=== PATIENT | male | born 1945 | race Caucasian/White ===

== ENCOUNTER 2019-07-16 05:35 | Outpatient (CLI) | payer MEDICARE ==
[~2019-07-16] VITALS: Ht 177 cm; Wt 59.0 kg
[2019-07-16] MEDS ORDERED: FLUT15.845 NS (10:41)
[2019-07-16] MEDS ORDERED: LISI-556 PO (10:41)
[2019-07-16] MEDS ORDERED: TIOT18CA2 IH (10:41)
[2019-07-16] MEDS ORDERED: PANT40TA3 PO (10:41)
[2019-07-16] MEDS ORDERED: BUDE10.2 IH (10:41)
== END 2019-07-16 10:42 | disposition home or self-care (01) ==
LOC: PREOP 05:35
PROVIDERS: ATTEND Internal Medicine Critical Care Medicine
DX: Z01.818 Encounter for other preprocedural examination (principal)

== ENCOUNTER → 2019-07-17 | Outpatient (CLI) | payer MEDICARE ==
[~2019-07-17] MED LIST: BUDE10.2 IH; FLUT15.845 NS; HOLD METFORMIN - RECEIVED CONTRAST 20 ML VIAL IV SCH; IOHEXOL 350 MG/ML 100 ML (OMNIPAQUE 350) VIAL IV ONE; LISI-556 PO; NS 100 ML (IVPB) BAG IV ONE; PANT40TA3 PO; RT-ALBUTEROL SULF 2.5 MG/3 ML PRE-MIX VIAL INH ONE; RT-ALBUTEROL SULF 2.5 MG/3 ML PRE-MIX VIAL ONE; TIOT18CA2 IH
[2019-07-17 07:32] LABS: BUN/CREATININE RATIO 10; CREATININE SERUM 0.82 MG/DL (0.60-1.30); GFR ESTIMATED > 60
--- NOTE | 2019-07-17 09:05 | Diagnostic Imaging Report ---
EXAMINATION: CT Chest with intravenous contrast. TECHNIQUE: Multiple contiguous axial images were obtained through the chest after the uneventful administration of intravenous contrast. All CT scans use one or more of the following dose optimizing techniques: automated exposure control, MA and/or KvP adjustment based on a patient size and exam type, or iterative reconstruction. INDICATION: LUNG MASS,DYSPNEA COMPARISON: None available. FINDINGS: There is no edema or pneumonia. No pleural effusion. No pneumothorax. There is a 11 mm irregular shaped left upper lobe nodule. Lungs are severely emphysematous. There has been right upper lobe wedge resection. There is a 4 mm superior segment left lower lobe nodule (series 3, image 53). Heart size is normal. There are mild coronary artery calcifications. No pericardial effusion. Aorta is normal in caliber. There is no axillary or supraclavicular lymphadenopathy. There is no mediastinal lymphadenopathy. Calcified mediastinal lymph nodes are in keeping with prior granulomatous infection. Limited views of the upper abdomen show the gallbladder to be absent. There is mild thickening of adrenal glands without discrete nodule. 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 There are no suspicious osseus lesions. IMPRESSION: 1. Indeterminate but suspicious 11 mm left upper lobe nodule. According to the Fleischner Society guidelines: Recommend CT at 3 months or PET/CT now. Dictated by: Dictated on workstation # [id number]
== END ==
LOC: RT 06:55
PROVIDERS: ATTEND Nurse Practitioner Family
DX: J43.9 Emphysema, unspecified (principal); J30.9 Allergic rhinitis, unspecified; R91.8 Other nonspecific abnormal finding of lung field; Z72.0 Tobacco use; R09.02 Hypoxemia; R06.00 Dyspnea, unspecified; R06.89 Other abnormalities of breathing; R05 Cough
CPT/HCPCS: 36415; 71260; 82565; 84520; 94060; 94726; 94729

== ENCOUNTER 2019-08-13 17:30 | Inpatient (IN) | payer MEDICARE, OTHER ==
[~2019-08-13] VITALS: Ht 177 cm; Wt 55.0 kg
[~2019-08-13 17:30] MED LIST changes: -HOLD METFORMIN - RECEIVED CONTRAST 20 ML VIAL IV SCH; -IOHEXOL 350 MG/ML 100 ML (OMNIPAQUE 350) VIAL IV ONE; -NS 100 ML (IVPB) BAG IV ONE; -RT-ALBUTEROL SULF 2.5 MG/3 ML PRE-MIX VIAL INH ONE; -RT-ALBUTEROL SULF 2.5 MG/3 ML PRE-MIX VIAL ONE
[2019-08-13] MEDS ORDERED: methylPREDNISolone 125 MG (Solu-MEDROL) VIAL IV STA (17:40)
[2019-08-13] MEDS ORDERED: DEXAMETHASONE 4 MG/ML SDV (DECADRON) IH ONE (17:45)
[2019-08-13] MEDS ORDERED: CEFD300C3 PO (17:51)
[2019-08-13] MEDS ORDERED: PRD20T PO (17:51)
[2019-08-13 17:52] LABS: BASOPHILS % (AUTO) 0 % (0-10); EOSINOPHILS % (AUTO) 0 % (0-10); HEMATOCRIT 47 % (40-54); HEMOGLOBIN 15.3 G/DL (13.3-17.7); LYMPHOCYTES % (AUTO) 23 % (12-44); MEAN CORPUSCULAR HEMOGLOBIN 33 PG (25-34); MEAN CORPUSCULAR HGB CONC 33 G/DL (32-36); MEAN CORPUSCULAR VOLUME 99 FL (80-99); MEAN PLATELET VOLUME 10.5 FL (7.4-10.4); MONOCYTES # (AUTO) 1.2 X 10^3 (0.0-1.0); MONOCYTES % (AUTO) 13 % (0-12); NEUTROPHILS # (AUTO) 5.6 X 10^3 (1.8-7.8); NEUTROPHILS % (AUTO) 63 % (42-75); PLATELET COUNT 167 10^3/uL (130-400); RED CELL DISTRIBUTION WIDTH 13.4 % (10.0-14.5); WHITE BLOOD COUNT 8.8 10^3/uL (4.3-11.0)
[2019-08-13 18:10] LABS: ALANINE AMINOTRANSFERASE 21 U/L (0-55); ALBUMIN 3.9 GM/DL (3.2-4.5); ALKALINE PHOSPHATASE 78 U/L (40-136); BILIRUBIN,TOTAL 0.3 MG/DL (0.1-1.0); BUN/CREATININE RATIO 18; CALCIUM 9.3 MG/DL (8.5-10.1); CARBON DIOXIDE 31 MMOL/L (21-32); CHLORIDE 101 MMOL/L (98-107); CREATININE SERUM 0.79 MG/DL (0.60-1.30); GFR ESTIMATED > 60; GLUCOSE 119 MG/DL (70-105); MAGNESIUM 1.9 MG/DL (1.6-2.4); SODIUM 138 MMOL/L (135-145); TOTAL PROTEIN 6.9 GM/DL (6.4-8.2)
[2019-08-13] MEDS ORDERED: RT-ALBUTEROL SULF 2.5 MG/3 ML PRE-MIX VIAL INH ONE (18:15)
--- NOTE | 2019-08-13 18:24 | Diagnostic Imaging Report ---
INDICATION: Shortness of air. COMPARISON STUDY: Chest from July 22. FINDINGS: Frontal view of the chest demonstrates stable COPD changes. Surgical clips overlie the upper mediastinum. Heart size and vascularity are normal. There are no focal infiltrates. IMPRESSION: COPD. Dictated by: Dictated on workstation # [id number]
--- NOTE | 2019-08-13 18:29 | ED Respiratory ---
General Chief Complaint: Respiratory Problems Stated Complaint: SOA Nursing Triage Note: PT ARRIVED PER EMS PT CO OF SOA COUPLE DAYS WORSENING TODAY. PT HAS SL IN L WRIST #20 BY EMS History of Present Illness Date Seen by Provider: Aug 13, 2019 Time Seen by Provider: 17:30 Initial Comments 74-year-old male comes via EMS for shortness of air. He reports that is been getting worse over the last 2-3 days. He wears oxygen at home 1 L per nasal cannula but is not always compliant. He is supposed uses albuterol inhaler every 4-6 hours but has not been using it regularly. He is also on Symbicort. He sees Dr. Choi for chronic COPD. He denies any recent fevers. He is requiring O2 per nasal cannula at 4 L to maintain SaO2 greater than 90% Timing/Duration: yesterday Severity: moderate Prior Episodes/Possible Cause: occasional episodes Associated Symptoms: cough, shortness of breath, wheezing Allergies and Home Medications Allergies Coded Allergies: ipratropium (Verified Allergy, Unknown, 08/13/19) Home Medications Budesonide/Formoterol Fumarate 10.2 Gm Hfa.aer.ad, 2 PUFF IH BID, (Reported) Cefdinir 300 Mg Capsule, 300 MG PO BID, (Reported) Fluticasone Propionate 15.8 Ml [place].susp, 15.8 ML NS BIDPC, (Reported) Lisinopril 5 Mg Tablet, 5 MG PO DAILY, (Reported) Pantoprazole Sodium 40 Mg Tablet.dr, 40 MG PO DAILY, (Reported) Prednisone 20 Mg Tab, 40 MG PO DAILY, (Reported) Tiotropium [place] 1 Inh Aerp, 1 INH IH DAILY, (Reported) Patient Home Medication List Home Medication List Reviewed: Yes Review of Systems Review of Systems Constitutional: no symptoms reported, see HPI; No fever Respiratory: see HPI, cough, dyspnea on exertion, short of breath, wheezing Cardiovascular: no symptoms reported, see HPI; No chest pain Gastrointestinal: no symptoms reported, see HPI All Other Systems Reviewed Negative Unless Noted: Yes Past Covzcla-Tbawlu-Eiqynm Hx Past Med/Social Hx: Reviewed Nursing Past Med/Soc Hx Patient Social History Alcohol Use: Past History Recreational Drug Use: No Smoking Status: Former Smoker Type Used: Cigarettes Former Smoker, Quit: Jun 15, 2019 2nd Hand Smoke Exposure: No Recent Foreign Travel: No Contact w/Someone Who Travel: No Recent Infectious Disease Expo: No Recent Hopitalizations: Yes (JUN-2019 PNEUMONIA) Physical Abuse: No Sexual Abuse: No Immunizations Up To Date Tetanus Booster (TDap): Unknown Date of Pneumonia Vaccine: Mar 09, 2019 Date of Influenza Vaccine: Mar 09, 2019 Seasonal Allergies Seasonal Allergies: Yes Past Medical History Surgeries: Yes (FINGER AMPUTATION, R UPPER LOBECTOMY, CATARACTS) Gallbladder Respiratory: Yes (O2 PRN) Pneumonia, COPD Currently Using CPAP: No Currently Using BIPAP: No Cardiac: Yes Hypertension Neurological: No Sexually Transmitted Disease: No HIV/AIDS: No Genitourinary: No Gastrointestinal: Yes Hiatal Hernia Musculoskeletal: No (PSORIATIC ARTHRITIS) Endocrine: No HEENT: Yes (READING GLASSES) Loss of Vision: Denies Cancer: No Psychosocial: No Integumentary: Yes Psoriasis Blood Disorders: No Adverse Reaction/Blood Tranf: No (N/A) Physical Exam Vital Signs - First Documented 08/13/19 17:30 Temp 37.0 Pulse 118 Resp 24 B/P (MAP) 167/105 (125) Pulse Ox 91 O2 Delivery Nasal Cannula O2 Flow Rate 3.00 Capillary Refill : Less Than 3 Seconds Height: '" Weight: lbs. oz. kg; 18.00 BMI Method: General Appearance: WD/WN, moderate distress (secondary to dyspnea) Eyes: Bilateral Eye Normal Inspection, Bilateral Eye PERRL, Bilateral Eye EOMI HEENT: PERRL/EOMI, normal ENT inspection, TMs normal, pharynx normal Neck: non-tender, full range of motion, supple, normal inspection Respiratory: chest non-tender; No normal breath sounds, No no respiratory distress, No no accessory muscle use; decreased breath sounds, wheezing, other (noted retractions and respiratory distress) Cardiovascular: normal peripheral pulses, regular rate, rhythm Gastrointestinal: normal bowel sounds, non tender, soft Extremities: normal range of motion, non-tender, normal inspection, no pedal edema, no calf tenderness Neurologic/Psychiatric: no motor/sensory deficits, alert, normal mood/affect, oriented x 3 Skin: normal color, warm/dry Focused Exam Lactate Level 08/13/19 17:41: Lactic Acid Level 1.36 Lactic Acid Level Laboratory Tests Test 08/13/19 17:41 Lactic Acid Level 1.36 MMOL/L (0.50-2.00) Progress/Results/Core Measures Suspected Sepsis Recent Fever Within 48 Hours: Yes Infection Criteria Present: None New/Unexplained Altered Menta: No Sepsis Screen: No Definite Risk SIRS Temperature: Pulse: 118 Respiratory Rate: 24 Laboratory Tests 08/13/19 17:41: White Blood Count 8.8 Blood Pressure 167 /105 Mean: 125 08/13/19 17:41: Lactic Acid Level 1.36 Laboratory Tests 08/13/19 17:41: Creatinine 0.79, Platelet Count 167, Total Bilirubin 0.3 Results/Orders Lab Results Laboratory Tests Test 08/13/19 17:41 Range/Units White Blood Count 8.8 4.3-11.0 10^3/uL Red Blood Count 4.70 4.35-5.85 10^6/uL Hemoglobin 15.3 13.3-17.7 G/DL Hematocrit 47 40-54 % Mean Corpuscular Volume 99 80-99 FL Mean Corpuscular Hemoglobin 33 25-34 PG Mean Corpuscular Hemoglobin Concent 33 32-36 G/DL Red Cell Distribution Width 13.4 10.0-14.5 % Platelet Count 167 130-400 10^3/uL Mean Platelet Volume 10.5 H 7.4-10.4 FL Neutrophils (%) (Auto) 63 42-75 % Lymphocytes (%) (Auto) 23 12-44 % Monocytes (%) (Auto) 13 H 0-12 % Eosinophils (%) (Auto) 0 0-10 % Basophils (%) (Auto) 0 0-10 % Neutrophils # (Auto) 5.6 1.8-7.8 X 10^3 Lymphocytes # (Auto) 2.0 1.0-4.0 X 10^3 Monocytes # (Auto) 1.2 H 0.0-1.0 X 10^3 Eosinophils # (Auto) 0.0 0.0-0.3 10^3/uL Basophils # (Auto) 0.0 0.0-0.1 10^3/uL Sodium Level 138 135-145 MMOL/L Potassium Level 5.0 3.6-5.0 MMOL/L Chloride Level 101 98-107 MMOL/L Carbon Dioxide Level 31 21-32 MMOL/L Anion Gap 6 5-14 MMOL/L Blood Urea Nitrogen 14 7-18 MG/DL Creatinine 0.79 0.60-1.30 MG/DL Estimat Glomerular Filtration Rate > 60 BUN/Creatinine Ratio 18 Glucose Level 119 H 70-105 MG/DL Lactic Acid Level 1.36 0.50-2.00 MMOL/L Calcium Level 9.3 8.5-10.1 MG/DL Corrected Calcium 9.4 8.5-10.1 MG/DL Magnesium Level 1.9 1.6-2.4 MG/DL Total Bilirubin 0.3 0.1-1.0 MG/DL Aspartate Amino Transf (AST/SGOT) 24 5-34 U/L Alanine Aminotransferase (ALT/SGPT) 21 0-55 U/L Alkaline Phosphatase 78 40-136 U/L C-Reactive Protein High Sensitivity 2.70 H 0.00-0.50 MG/DL B-Type Natriuretic Peptide 18.4 <100.0 PG/ML Total Protein 6.9 6.4-8.2 GM/DL Albumin 3.9 3.2-4.5 GM/DL Procalcitonin 0.02 <0.10 NG/ML Micro Results Microbiology 08/13/19 Influenza Types A,B Antigen (BETZAIDA) - Final, Complete My Orders Orders - SELINA SANTILLAN Cbc With Automated Diff (08/13/19 17:40) Comprehensive Metabolic Panel (08/13/19 17:40) BNP (08/13/19 17:40) Hs C Reactive Protein (08/13/19 17:40) Magnesium (08/13/19 17:40) Ekg Tracing (08/13/19 17:40) O2 (08/13/19 17:40) Ed Iv/Invasive Line Start (08/13/19 17:40) Sputum Culture (08/13/19 17:40) Monitor-Rhythm Ecg Trace Only (08/13/19 17:40) Dexamethasone Injection (Decadron Inject (08/13/19 17:45) Methylprednisolone Sod Succ (Solu-Medrol (08/13/19 17:40) Chest 1 View, Ap/Pa Only (08/13/19 17:40) Blood Culture (08/13/19 17:42) Influenza A And B Antigens (08/13/19 17:42) Lactic Acid Analyzer (08/13/19 17:42) Medications Given in ED Vital Signs/I&O 08/13/19 08/13/19 17:30 17:30 Temp 37.0 Pulse 118 Resp 24 B/P (MAP) 167/105 (125) Pulse Ox 91 91 O2 Delivery Nasal Cannula Nasal Cannula O2 Flow Rate 3.00 3.00 Capillary Refill : Less Than 3 Seconds Blood Pressure Mean: 125 Progress Note : Time: 17:30 Progress Note Patient seen and evaluated, will continue oxygen per nasal cannula until respiratory therapy available to convert to Vapotherm and start one hour albuterol treatment. Will obtain labs and chest x-ray. Patient sitting on side of bed, leaning on table, feels easiest to breath, in this position. Solu- Medrol 125 mg per IV. 1814 Patient remains stable with less SOA, RT here. Chest x-ray and labs more compatible with COPD and not Pneumonia. SPoke to Dr. Green, agreed with plan for admission. 1854 Improving with vapotherm. Spoke to Dr. Regalado, will consult, agreed with plan of care. 1914 patient able to lie with head of bed elevated, no further retractions. Vapotherm continuing. Vital signs remained stable. Pro-calcitonin negative, will treat his COPD and not manage for infectious process with further antibiotics, Drs. Green and Steph agreed with this plan ECG Initial ECG Impression Date: Aug 13, 2019 Initial ECG Impression Time: 17:51 Initial ECG Rate: 114 Initial ECG Rhythm: S.Tach Initial ECG Intervals: Normal Initial ECG Intervals OH 176, QRSD 88, QT 316, QTC 436. [place] P 75, QRS 88, T 69. Initial ECG Impression: Normal Initial ECG Comparisson: Unchanged Diagnostic Imaging Diagonstic Imaging: Xray Plain Films/CT/US/NM/MRI: chest Comments NAME: SARAH DALAL MED REC#: [id number] PT STATUS: REG ER : 1945 PHYSICIAN: SELINA SANTILLAN ADMIT DATE: 08/13/19/ER Draft Date of Exam:08/13/19 CHEST 1 VIEW, AP/PA ONLY INDICATION: Shortness of air. COMPARISON STUDY: Chest from July 22. FINDINGS: Frontal view of the chest demonstrates stable COPD changes. Surgical clips overlie the upper mediastinum. Heart size and vascularity are normal. There are no focal infiltrates. IMPRESSION: COPD. Dictated on workstation # [id number] Dict: 08/13/191821 Trans: 08/13/191823 [facility] [id number] Interpreted by: CHELSIE PERSON MD Electronically signed by: Reviewed: Reviewed by Me Departure Impression Primary Impression: COPD exacerbation Additional Impression: Dyspnea Qualified Codes: R06.02 - Shortness of breath Disposition: ADMITTED INPATIENT Condition: Critical Admissions Decision to Admit Reason: Admit from ER (General) Decision to Admit/Date: Aug 13, 2019 Time/Decision to Admit Time: 18:15 Departure-Patient Inst. Decision time for Depature: 18:15 Referrals: JAKE VENEGAS DO (PCP/Family) Primary Care Physician SELINA SANTILLAN Aug 13, 2019 18:29
[2019-08-13] MEDS ORDERED: AZITHROMYCIN INJECTION 500 MG in NS (IVPB) 250 ML IV ONE (18:45)
[2019-08-13 20:39] VITALS: BP 139/93
[2019-08-13 20:44] VITALS: BP 139/93
[2019-08-13 20:45] VITALS: BP 110/79
[2019-08-13] MEDS ORDERED: 1/2 NS IV SOLUTION 1,000 ML IV SCH (20:45)
[2019-08-13] MEDS ORDERED: ACETAMINOPHEN 325 MG TABLET PO PRN (20:45)
[2019-08-13] MEDS ORDERED: ONDANSETRON 4 MG/2 ML (SDV) Z0FRAN IV PRN (20:45)
[2019-08-13 21:00] VITALS: BP 117/76
[2019-08-13 21:15] VITALS: BP 120/76
[2019-08-13 21:45] VITALS: BP_SYST 113; BP_SYST 121; BP_DIAS 73
--- NOTE | 2019-08-13 21:51 | NUR ---
Mat Score of 9 Albuterol Q4 and Q2 PRN Monitor and Reasses Q72HRs and PRN Addendum: 08/13/19 at 2151 by OLGA HANCOCK RT Amended: Links added.
[2019-08-13] MEDS ORDERED: RT-ALBUTEROL SULF 2.5 MG/3 ML PRE-MIX VIAL ONE (21:55)
[2019-08-13] MEDS: RT-ALBUTEROL SULF 2.5 MG/3 ML PRE-MIX VIAL INH SCH (22:10)
[2019-08-14] MEDS: RT-ALBUTEROL SULF 2.5 MG/3 ML PRE-MIX VIAL INH SCH ×6 (02:14→22:48)
[2019-08-14 03:51] LABS: BASOPHILS % (AUTO) 0 % (0-10); EOSINOPHILS % (AUTO) 0 % (0-10); HEMATOCRIT 45 % (40-54); HEMOGLOBIN 14.4 G/DL (13.3-17.7); LYMPHOCYTES # (AUTO) 0.3 X 10^3 (1.0-4.0); LYMPHOCYTES % (AUTO) 8 % (12-44); MEAN CORPUSCULAR HEMOGLOBIN 32 PG (25-34); MEAN CORPUSCULAR HGB CONC 32 G/DL (32-36); MEAN CORPUSCULAR VOLUME 99 FL (80-99); MEAN PLATELET VOLUME 10.6 FL (7.4-10.4); MONOCYTES # (AUTO) 0.1 X 10^3 (0.0-1.0); MONOCYTES % (AUTO) 2 % (0-12); NEUTROPHILS # (AUTO) 3.4 X 10^3 (1.8-7.8); NEUTROPHILS % (AUTO) 90 % (42-75); PLATELET COUNT 161 10^3/uL (130-400); RED CELL DISTRIBUTION WIDTH 13.4 % (10.0-14.5); WHITE BLOOD COUNT 3.8 10^3/uL (4.3-11.0)
[2019-08-14 04:00] VITALS: BP 147/78
[2019-08-14 04:07] LABS: BAND NEUTROPHILS 2 %; BASOPHILS % (MANUAL) 0 %; EOSINOPHILS % (MANUAL) 0 %; LYMPHOCYTES % (MANUAL) 9 %; MONOCYTES % (MANUAL) 3 %; NEUTROPHILS % (MANUAL) 85 %; REACTIVE LYMPHOCYTES 1 %
[2019-08-14 04:08] LABS: RBC MORPH NORMAL
[2019-08-14 04:13] LABS: ALANINE AMINOTRANSFERASE 20 U/L (0-55); ALBUMIN 3.7 GM/DL (3.2-4.5); ALKALINE PHOSPHATASE 77 U/L (40-136); BILIRUBIN,TOTAL 0.3 MG/DL (0.1-1.0); BUN/CREATININE RATIO 16; CARBON DIOXIDE 26 MMOL/L (21-32); CHLORIDE 99 MMOL/L (98-107); CREATININE SERUM 0.67 MG/DL (0.60-1.30); GFR ESTIMATED > 60; GLUCOSE 155 MG/DL (70-105); POTASSIUM 4.3 MMOL/L (3.6-5.0); SODIUM 137 MMOL/L (135-145); TOTAL PROTEIN 6.2 GM/DL (6.4-8.2)
[2019-08-14 05:00] VITALS: BP 183/101
--- NOTE | 2019-08-14 05:39 | Pulmonary Consultation ---
History of Present Illness History of Present Illness Date Seen by Provider: Aug 14, 2019 Time Seen by Provider: 05:37 Date of Admission Allergies and Home Medications Allergies Coded Allergies: ipratropium (Verified Allergy, Unknown, 08/13/19) Home Medications Budesonide/Formoterol Fumarate 10.2 Gm Hfa.aer.ad, 2 PUFF IH BID, (Reported) Cefdinir 300 Mg Capsule, 300 MG PO BID, (Reported) Fluticasone Propionate 15.8 Ml [place].susp, 15.8 ML NS BIDPC, (Reported) Lisinopril 5 Mg Tablet, 5 MG PO DAILY, (Reported) Pantoprazole Sodium 40 Mg Tablet.dr, 40 MG PO DAILY, (Reported) Prednisone 20 Mg Tab, 40 MG PO DAILY, (Reported) Tiotropium [place] 1 Inh Aerp, 1 INH IH DAILY, (Reported) Past Qouzaqs-Vtshjh-Aewfvr Hx Past Med/Social Hx: Reviewed Nursing Past Med/Soc Hx Patient Social History Alcohol Use: Past History Recreational Drug Use: No Smoking Status: Former Smoker Type Used: Cigarettes Former Smoker, Quit: Jun 15, 2019 2nd Hand Smoke Exposure: No Recent Foreign Travel: No Contact w/Someone Who Travel: No Recent Infectious Disease Expo: No Recent Hopitalizations: Yes (JUN-2019 PNEUMONIA) Physical Abuse: No Sexual Abuse: No Immunizations Up To Date Tetanus Booster (TDap): Unknown Date of Pneumonia Vaccine: Mar 09, 2019 Date of Influenza Vaccine: Mar 09, 2019 Seasonal Allergies Seasonal Allergies: Yes Past Medical History Surgeries: Yes (FINGER AMPUTATION, R UPPER LOBECTOMY, CATARACTS) Gallbladder Respiratory: Yes (O2 PRN) Pneumonia, COPD Currently Using CPAP: No Currently Using BIPAP: No Cardiac: Yes Hypertension Neurological: No Sexually Transmitted Disease: No HIV/AIDS: No Genitourinary: No Gastrointestinal: Yes Hiatal Hernia Musculoskeletal: No (PSORIATIC ARTHRITIS) Endocrine: No HEENT: Yes (READING GLASSES) Loss of Vision: Denies Cancer: No Psychosocial: No Integumentary: Yes Psoriasis Blood Disorders: No Adverse Reaction/Blood Tranf: No (N/A) Sepsis Event Evaluation Height, Weight, BMI Height: '" Weight: lbs. oz. kg; 16.72 BMI Method: Exam Exam Vital Signs Date Time Temp Pulse Resp B/P (MAP) Pulse Ox O2 Delivery O2 Flow Rate FiO2 08/14/19 04:00 70 20 147/78 (101) 98 Vapotherm 25.00 30.00 08/14/19 04:00 Vapotherm 22.00 25 08/14/19 02:50 Vapotherm 22.00 25.00 08/14/19 02:15 95 Vapotherm 25.00 25 08/14/19 01:00 90 08/14/19 00:00 Vapotherm 25.00 25 08/13/19 23:33 Vapotherm 25.00 25.00 08/13/19 23:31 37.2 08/13/19 22:10 97 Vapotherm 2.00 30 08/13/19 21:45 90 95 30 08/13/19 21:45 90 24 113/73 (86) 95 Vapotherm 25.00 30.00 08/13/19 21:15 92 13 120/76 (91) 95 Vapotherm 25.00 30.00 08/13/19 21:00 98 25 117/76 (90) 95 Vapotherm 25.00 30.00 08/13/19 20:55 102 08/13/19 20:45 105 25 110/79 (89) 95 Vapotherm 25.00 30.00 08/13/19 20:44 37.4 112 24 139/93 90 Vapotherm 25.00 30.00 08/13/19 20:39 37.4 112 24 139/93 (108) 90 Vapotherm 25.00 30.00 08/13/19 20:30 Vapotherm 25.00 30 08/13/19 18:26 95 Nasal Cannula 2.00 08/13/19 17:30 37.0 118 24 167/105 (125) 91 Nasal Cannula 3.00 08/13/19 17:30 91 Nasal Cannula 3.00 I & O 08/14/19 07:00 Intake Total 250 ml Output Total 0 ml Balance 250 ml Height & Weight Height: '" Weight: lbs. oz. kg; 16.72 BMI Method: Capillary Refill: Less Than 3 Seconds Gastrointestinal: normal bowel sounds, non tender, soft Results Lab Laboratory Tests 08/13/19 17:41 08/14/19 03:00 Assessment/Plan Assessment/Plan COPDAE -Solumedrol - change to 40 Q 6 -Oxygen -Check ABG -Change Vapotherm to NC -I highly doubt ipratropium allergy. Remove ipratropium from allergy list. Pt is on spiriva at home -Add advair and spiriva. Very sever COPD hx ASHLEY BALDWIN DO Aug 14, 2019 05:39
[2019-08-14] MEDS ORDERED: methylPREDNISolone 125 MG (Solu-MEDROL) VIAL IV SCH ×2 (06:00)
[2019-08-14] MEDS ORDERED: methylPREDNISolone 40 MG/ML (Solu-MEDROL) VIAL ONE (06:03)
[2019-08-14] MEDS: methylPREDNISolone 40 MG/ML (Solu-MEDROL) VIAL IV SCH ×4 (06:34→23:19)
[2019-08-14] MEDS: RT-ADVAIR HFA 115/21 MCG PER PUFF IH SCH ×2 (06:43→19:11)
--- NOTE | 2019-08-14 07:07 | Diagnostic Imaging Report ---
INDICATION: COPD exacerbation. COMPARISON: 08/13/2019. FINDINGS: The heart size is normal. There is air trapping compatible with COPD. There is no pleural effusion, pneumothorax or pneumonia. Mediastinum is unremarkable IMPRESSION: 1. COPD. 2. No other acute cardiopulmonary abnormality. Dictated by: Dictated on workstation # [id number]
[2019-08-14 08:00] VITALS: BP 97/82
[2019-08-14] MEDS ORDERED: TIOTROPIUM BROMIDE (SPIRIVA) 5'S INHALER IH SCH (08:00)
[2019-08-14] MEDS ORDERED: UMECLIDINIUM BROMIDE (INCRUSE ELLIPTA) 7'S IH SCH (08:00)
[2019-08-14 08:34] LABS: ABG BASE EXCESS 2.3 MMOL/L (-2.5-2.5); ABG OXYGEN SATURATION 97 % (94-100); ABG PCO2 47 MMHG (35-45); ABG PH 7.38 (7.37-7.43); ABG PO2 89 MMHG (79-93); ABG TCO2 28.7 MMOL/L (21.0-31.0)
[2019-08-14 08:35] LABS: ALLENS TEST YES-POS; INSPIRED O2 30; PATIENT TEMP 35.8; VENTILATOR NO
[2019-08-14] MEDS ORDERED: PATIENT MAY USE OWN MED,SINGLE MED PO SCH (09:00)
--- NOTE | 2019-08-14 09:10 | NUR ---
PT TRANSFERRED TO ROOM 419 VIA WC ACCOMPANIED BY THIS RN AND PT . PT PERSONAL BELONGINGS SENT TO NEW ROOM WITH PT INCLUDING PT HOME MEDS. BEDSIDE REPORT GIVEN TO RED BERNAL FOR CONTINUING CARE.
--- NOTE | 2019-08-14 09:15 | NUR ---
Bedside report received from Sultana Ann RN. I agree with previous RN's assessment. Patient voices no complaints and all needs met at this time. Call light within reach.
[2019-08-14] MEDS: TIOTROPIUM BROMIDE IH SCH (10:07)
[2019-08-14] MEDS ORDERED: FLUT9.9S NS (11:36)
[2019-08-14] MEDS ORDERED: IPRA3AMP31 NEB (11:36)
[2019-08-14] MEDS ORDERED: LACT1CAP62 PO (11:41)
[2019-08-14] MEDS ORDERED: MULT1TAB69 PO (11:41)
--- NOTE | 2019-08-14 11:50 | NUR ---
Pt is [employer]. Procurement Technician provided prayer and Communion.
[2019-08-14 12:00] VITALS: BP 155/79
--- NOTE | 2019-08-14 12:03 | NUR ---
RD ASSESSMENT PMHx: COPD; HTN; hiatal hernia PT INTERACTION: Pt was awake and pleasant during consult for MST score. Pt states current appetite is poor and has been for the "past 2days, if not longer." Note PO intake of 100% x1meal, per chart review. Pt states following a regular diet at home, and has no issues with chewing/swallowing food. Pt states no recent issues with nausea/vomiting/constipation, but has had some recent issues with diarrhea and that his last BM was 08/13. Note pt not currently on bowel regimen per chart review. Pt states he has lost 20-25# over the last year. Note recent 15# wt loss x1mon, per chart review. This is significant wt loss at 11% x1mon. Upon visual exam, pt appears frail with visible signs of muscle/fat wasting in the triceps and facial region. Note pt has BMI of 16.7, which is classified as Underweight. Given visual exam and wt hx, pt meets criteria for malnutrition per ASPEN guidelines. ABNORMAL NUTRITION-RELATED LAB VALUES LOW: Pro 6.2 HIGH: glu 155 Est. kcal needs: 2729-9635 kcal | 30-35 kcal/kg Est. 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 Continue with current supplementation order of Ensure Enlive (vary) with meals TID. Provides 350 kcal and 13 g Pro per serving. Encouraged pt to eat when able. Will continue to follow and reassess as pt needs, intake, and status change. MONITOR/EVALUATE: PO Intake; Plan of Care; Hydration Status; Weight Status; Lab Values Mateo Arrington, MS, RD, LD
[2019-08-14] MEDS ORDERED: SODI4VIA26 NEB (12:05)
--- NOTE | 2019-08-14 12:12 | NUR ---
SPOKE WITH THE PT AND WENT THRU THE EXT MED HISTORY TO COMPLETE THE MED REC PT WAS ABLE TO TELL ME HIS MEDS AND HOW/WHEN HE TAKES THEM (ALL INFORMATION MATCHED THE EXT MED HISTORY) PT DID SAY HE HAD SOME LEFT OVER PREDNISONE 10MG AND OVER THE LAST 24 HOURS HAD BEEN TAKING SOME TO KEEP FROM HAVING TO COME IN. HE TOOK 4 TABS TWICE DAILY YESTERDAY. OTC MEDS: [employer] PRO[employer]OTIC
--- NOTE | 2019-08-14 14:41 | History & Physical-Hospitalist ---
History of Present Illness HPI/Chief Complaint Pt is a 74yoCM with a PMH of COPD and HTN who presented to the ER due to shortness of breath. He states that he suffered a "respiratory arrest" after going to the bathroom. He states he wears continuous oxygen at home and took it off to go to the bathroom but by the time he got back he was in "respiratory arrest." He asked his to call 911 at that time and placed his oxygen back on at 5lpm. He states his symptoms were much improved by the time EMS got there. He states he was seen by his PCP a few days ago an started on steroids and antibiotics without any improvement. He has been having increased shortness of breath over the past few days and thinks his Spiriva is causing bronchospasm. I offered to discontinue this order but he declined because he wants to follow Dr Choi's orders. Date Seen 08/14/19 Time Seen by a Provider: 14:34 Attending Physician Erickson Green MD PCP Zhang Duncan DO Referring Physician Date of Admission Aug 14, 2019 at 08:28 Home Medications & Allergies Home Medications Reviewed patient Home Medication Reconciliation performed by pharmacy medication reconciliations police service technician and/or nursing. Patients Allergies have been reviewed. Allergies Allergies Coded Allergies No Known Drug Allergies (Unverified08/14/19) Past Ugpvyky-Qjwmat-Xrmset Hx Past Med/Social Hx: Reviewed Nursing Past Med/Soc Hx Patient Social History Alcohol Use: Past History Recreational Drug Use: No Smoking Status: Former Smoker Former Smoker, Quit: Jun 15, 2019 Type Used: Cigarettes 2nd Hand Smoke Exposure: No Recent Foreign Travel: No Contact w/other who traveled: No Recent Hopitalizations: Yes (JUN-2019 PNEUMONIA) Recent Infectious Disease Expo: No Immunizations Up To Date Tetanus Booster (TDap): Unknown Date of Pneumonia Vaccine: Mar 09, 2019 Date of Influenza Vaccine: Mar 09, 2019 Seasonal Allergies Seasonal Allergies: Yes Past Medical History Surgeries: Gallbladder Currently Using CPAP: No Currently Using BIPAP: No Cardiac: Hypertension Sexually Transmitted Disease: No HIV/AIDS: No Gastrointestinal: Hiatal Hernia Loss of Vision: Denies Skin/Integumentary: Psoriasis History of Blood Disorders: No Adverse Reaction to Blood Chandra: No (N/A) Family History Reviewed Nursing Family Hx Review of Systems Constitutional: No chills, No fever Respiratory: cough, dyspnea on exertion, short of breath, wheezing Gastrointestinal: no symptoms reported Genitourinary: no symptoms reported Musculoskeletal: no symptoms reported Skin: no symptoms reported Psychiatric/Neurological: No Symptoms Reported Physical Exam Physical Exam Vital Signs Vital Signs - First Documented 08/13/19 08/13/19 17:30 20:30 Temp 37.0 Pulse 118 Resp 24 B/P (MAP) 167/105 (125) Pulse Ox 91 O2 Delivery Nasal Cannula O2 Flow Rate 3.00 FiO2 30 Capillary Refill : Less Than 3 Seconds Height, Weight, BMI Height: '" Weight: lbs. oz. kg; 16.72 BMI Method: General Appearance: No Apparent Distress, Chronically ill, Thin HEENT: Moist Mucous Membranes; No Scleral Icterus (L), No Scleral Icterus (R) Neck: Normal Inspection, Supple Respiratory: No Accessory Muscle Use, Other (decreased air movement with expiratory wheezing) Cardiovascular: Regular Rate, Rhythm, No Murmur Gastrointestinal: Normal Bowel Sounds, Non Tender, Soft Extremity: No Calf Tenderness, No Pedal Edema Neurologic/Psychiatric: Alert, Oriented x3, Normal Mood/Affect Results Results/Procedures Labs Laboratory Tests 08/13/19 17:41 08/14/19 03:00 Patient resulted labs reviewed. Imaging: Reviewed Imaging Report Assessment/Plan Admission Diagnosis Acute COPD Exacerbation Admission Status: Inpatient Order (span 2 midnights) Reason for Inpatient Admission: failed outpatient management Assessment and Plan Acute on Chronic Respiratory Failure Acute COPD Exacerbation Continue with supplemental oxygen Steroids Advair, Spiriva MAT Protocol Pulm consulted, appreciate recs HTN Resume Lisinopril Gastritis Resume home PPI Clinical Quality Measures DVT/VTE Risk/Contraindication: Risk Factor Score Per Nursin RFS Level Per Nursing on Admit: 4+=Very High ERICKSON GREEN MD Aug 14, 2019 14:41
[2019-08-14] MEDS ORDERED: ONDANSETRON 4 MG/2 ML (SDV) Z0FRAN IV PRN (15:30)
[2019-08-14] MEDS ORDERED: ACETAMINOPHEN 325 MG TABLET PO PRN (15:30)
[2019-08-14] MEDS ORDERED: MELATONIN 3 MG TABLET PO PRN (15:30)
[2019-08-14] MEDS ORDERED: ANTACID SUSP 30 ML UDC (MYLANTA) PO PRN (15:30)
[2019-08-14] MEDS ORDERED: BENZONATATE 100 MG (TESSALON) CAPSULE PO PRN (15:30)
[2019-08-14] MEDS ORDERED: MILK OF MAGNESIA 400 MG/5 ML 30 ML UDC PO PRN (15:30)
[2019-08-14 16:00] VITALS: BP 161/80
[2019-08-14 19:53] VITALS: BP 137/75
[2019-08-15 00:03] VITALS: BP 118/67
[2019-08-15] MEDS: RT-ALBUTEROL SULF 2.5 MG/3 ML PRE-MIX VIAL INH SCH ×4 (02:19→21:55)
[2019-08-15 04:27] VITALS: BP 118/74
[2019-08-15 05:37] LABS: BASOPHILS % (AUTO) 0 % (0-10); EOSINOPHILS % (AUTO) 0 % (0-10); HEMATOCRIT 46 % (40-54); HEMOGLOBIN 14.9 G/DL (13.3-17.7); LYMPHOCYTES # (AUTO) 0.5 X 10^3 (1.0-4.0); LYMPHOCYTES % (AUTO) 6 % (12-44); MEAN CORPUSCULAR HEMOGLOBIN 32 PG (25-34); MEAN CORPUSCULAR HGB CONC 32 G/DL (32-36); MEAN CORPUSCULAR VOLUME 99 FL (80-99); MEAN PLATELET VOLUME 10.7 FL (7.4-10.4); MONOCYTES # (AUTO) 0.4 X 10^3 (0.0-1.0); MONOCYTES % (AUTO) 5 % (0-12); NEUTROPHILS # (AUTO) 8.3 X 10^3 (1.8-7.8); NEUTROPHILS % (AUTO) 90 % (42-75); PLATELET COUNT 181 10^3/uL (130-400); RED CELL DISTRIBUTION WIDTH 13.3 % (10.0-14.5); WHITE BLOOD COUNT 9.3 10^3/uL (4.3-11.0)
[2019-08-15 05:53] LABS: BUN/CREATININE RATIO 19; CALCIUM 9.6 MG/DL (8.5-10.1); CARBON DIOXIDE 28 MMOL/L (21-32); CHLORIDE 100 MMOL/L (98-107); CREATININE SERUM 0.75 MG/DL (0.60-1.30); GFR ESTIMATED > 60; GLUCOSE 227 MG/DL (70-105); POTASSIUM 4.2 MMOL/L (3.6-5.0); SODIUM 139 MMOL/L (135-145)
[2019-08-15] MEDS: methylPREDNISolone 40 MG/ML (Solu-MEDROL) VIAL IV SCH (06:05)
[2019-08-15 08:00] VITALS: BP 122/78
[2019-08-15] MEDS: predniSONE 10 MG TAB PO SCH (08:35)
--- NOTE | 2019-08-15 08:38 | NUR ---
This RN went to give patient morning medications. patient informed this RN that he already took his own protonix and lisonopril. home medications sent to in house pharmacy to be labeled
[2019-08-15] MEDS ORDERED: PATIENT MAY USE OWN MEDS, ALL MC SCH (08:45)
[2019-08-15] MEDS ORDERED: lisINopril 5 MG (PRINIVIL) TABLET PO SCH (09:00)
[2019-08-15] MEDS ORDERED: PANTOPRAZOLE 40 MG (PROTONIX) TAB PO SCH (09:00)
[2019-08-15] MEDS: lisINopril 5 MG (PRINIVIL) TABLET PO SCH (10:57)
[2019-08-15] MEDS: PANTOPRAZOLE 40 MG (PROTONIX) TAB PO SCH (10:58)
[2019-08-15 12:00] VITALS: BP 127/68
--- NOTE | 2019-08-15 12:04 | Progress Note - Hospitalist ---
Subjective HPI/CC On Admission Date Seen by Provider: Aug 15, 2019 Time Seen by Provider: 11:59 Pt is a 74yoCM with a PMH of COPD and HTN who presented to the ER due to shortness of breath. He states that he suffered a "respiratory arrest" after going to the bathroom. He states he wears continuous oxygen at home and took it off to go to the bathroom but by the time he got back he was in "respiratory arrest." He asked his to call 911 at that time and placed his oxygen back on at 5lpm. He states his symptoms were much improved by the time EMS got there. He states he was seen by his PCP a few days ago an started on steroids and antibiotics without any improvement. He has been having increased shortness of breath over the past few days and thinks his Spiriva is causing bronchospasm. I offered to discontinue this order but he declined because he wants to follow Dr Choi's orders. Subjective/Events-last exam Pt reports feeling much better. Breathing improved. No other complaints. Focused Exam Lactate Level 08/13/19 17:41: Lactic Acid Level 1.36 Objective Exam Vital Signs Vital Signs Date Time Temp Pulse Resp B/P (MAP) Pulse Ox O2 Delivery O2 Flow Rate FiO2 08/15/19 08:00 37.1 85 18 122/78 (93) 93 Nasal Cannula 1.00 08/14/19 04:00 25 Capillary Refill : Less Than 3 Seconds General Appearance: No Apparent Distress, Anxious, Chronically ill, Thin Respiratory: No Accessory Muscle Use, No Respiratory Distress, Decreased Breath Sounds; No Wheezing Cardiovascular: Regular Rate, Rhythm, No Murmur Neurologic/Psychiatric: Alert, Oriented x3 Results/Procedures Lab Laboratory Tests 08/15/19 05:00 Patient resulted labs reviewed. Imaging: Reviewed Imaging Report Assessment/Plan Assessment and Plan Assess & Plan/Chief Complaint Acute on Chronic Respiratory Failure Acute COPD Exacerbation Continue with supplemental oxygen with goals for sats >90 Patient has been adjusting his own oxygen levels and I advised that he should not being doing this unless his nurse is aware but he is insistent he needs to preoxygenate. Again reinforced that this is not allowed Steroids, transitioned to oral steroids today MAT Protocol Pulm consulted, appreciate recs HTN Continue Lisinopril Gastritis Continue home PPI Clinical Quality Measures DVT/VTE Risk/Contraindication: Risk Factor Score Per Nursin RFS Level Per Nursing on Admit: 4+=Very High ERICKSON JARVIS MD Aug 15, 2019 12:04
--- NOTE | 2019-08-15 14:00 | NUR ---
Report from Patricia BERNAL, will assume care of patient at this time.
[2019-08-15 16:00] VITALS: BP 130/73
--- OUTSIDE RECORDS SUMMARY | 2019-08-15 17:15 | XMS REPORT | Continuity of Care Document ---
Author Organization Unknown Address Unknown Phone Unavailable Allergies Active Description Code Type Severity Reaction Onset Reported/Identified Relationship to Patient Clinical Status Yes NO KNOWN DRUG ALLERGIES NO KNOWN DRUG ALLERG UNKNOWN Yes NO KNOWN DRUG ALLERGIES UNKNOWN NO KNOWN DRUG ALLERG Yes NO KNOWN DRUG ALLERGIES UNKNOWN UNKNOWN Yes ipratropium [id number] Drug Aller gy Unknown N/A 08/13/2019 Yes No Known Drug Allergies [id number] Drug Allergy Unknown N/A 08/14/2019 Medications Medication Packaging Start Date St op Date Route Dosage Sig IPRATROPIUM/ALBUTEROL INH SO LN INH 0 (DUO-NEB INH SOLN) MLS 05/31/2016 05/31/2016 ONCE&0907 METHYLPREDNISOLONE VIAL INJ 125 MG/2CC (SOLU-MEDROL VIAL) MG 05/31/2016 05/31/2016 ONCE&0916 ONDANSETRON VIAL INJ 4 MG/2CC (ZOFRAN 2CC VIAL) MG 05/31/2016 05/31/2016 ONCE&0928 ALBUTEROL SVN 2.5MG/3CC LIQ 2.5 MG (PROVENTIL ANKIT 2.5MG/3CC) MG 05/31/2016 05/31/2016 ONCE&0930 NORMAL SALINE 500CC IV BAG I NJ 0.9 % (NS 500CC IV BAG) ml 05/31/2016 05/31/2016 ONCE&1007 ALBUTEROL SVN 2.5MG/3CC LIQ 2.5 MG (PROVENTIL ANKIT 2.5MG/3CC) MG 05/31/2016 06/10/2016 QID&0600,1100,1600,2100 IPRATROPIUM/ALBUTEROL INH SO LN INH 0 (DUO-NEB INH SOLN) MLS 05/31/2016 06/07/2016 QID&0600,1100,1600,2100 CEFTRIAXONE PREMIX IV BAG IV 1 GM/50CC (ROCEPHIN PREMIX IV BAG) GM 05/31/2016 06/06/2016 Daily&1200 METHYLPREDNISOLONE VIAL INJ 125 MG/2CC (SOLU-MEDROL VIAL) MG 05/31/2016 06/05/2016 Q8H&0600,1400,2200 IPRATROPIUM/ALBUTEROL INH SO LN INH 0 (DUO-NEB INH SOLN) MLS 05/31/2016 06/07/2016 QID&0600,1100,1600,2100 RANITIDINE TAB 150 MG (ZANTAC) Dose(s) 05/31/2016 06/07/2016 BID&0800,2000 IPRATROPIUM/ALBUTEROL INH SO LN INH 0 (DUO-NEB INH SOLN) MLS 05/31/2016 06/07/2016 PRN Q2H LISINOPRIL TAB 5 MG (ZESTRIL) Dose(s) 06/01/2016 06/07/2016 Daily&0900 AZITHROMYCIN TAB 250 MG (ZITHROMAX) Dose(s) 06/01/2016 06/04/2016 Daily&0900 TIOTROPIUM CAP 18 MCG (SPIRIVA) Dose(s) 06/01/2016 06/07/2016 Daily&0900 CEFTRIAXONE INJ 1 GM (ROCEPHIN) GM 06/01/2016 06/07/2016 Daily&0900 CEFTRIAXONE PREMIX IV BAG IV 1 GM/50CC (ROCEPHIN PREMIX IV BAG) GM 06/01/2016 06/07/2016 Daily&0900 METHYLPREDNISOLONE VIAL INJ 125 MG/2CC (SOLU-MEDROL VIAL) MG 06/01/2016 06/06/2016 Q6H&0600,1200,1800,2359 BUDESONIDE INHALATION SUSP A MP 0.5 MG/2CC (PULMICORT) MG 06/01/2016 06/08/2016 BID&0800,2000 METHYLPREDNISOLONE VIAL INJ 125 MG/2CC (SOLU-MEDROL VIAL) MG 06/02/2016 06/07/2016 Q6H&0000,0600,1200,1800 METHYLPREDNISOLONE VIAL INJ 40 MG/CC (SOLU-MEDROL VIAL) MG 06/03/2016 06/08/2016 Q8H&0600,1400,2200 CEFDINIR CAP 300 MG (OMNICEF) MG 06/04/2016 06/14/2016 BID&0800,2000 PREDNISONE TAB 20 MG (DELTASONE) MG 06/04/2016 06/11/2016 BID&0800,2000 ALBUTEROL SVN 2.5MG/3CC LIQ 2.5 MG (PROVENTIL ANKIT 2.5MG/3CC) MG 10/06/2018 10/16/2018 QID&0600,1100,1600,2100 ALBUTEROL SVN 2.5MG/3CC LIQ 2.5 MG (PROVENTIL ANKIT 2.5MG/3CC) MG 10/06/2018 10/06/2018 ONCE&2308 METHYLPREDNISOLONE VIAL INJ 125 MG/2CC (SOLU-MEDROL VIAL) MG 10/06/2018 10/06/2018 ONCE&2308 IPRATROPIUM/ALBUTEROL INH SO LN (DUO-NEB INH SOLN) MLS 10/06/2018 10/06/2018 ONCE&2315 ALBUTEROL SVN 2.5MG/3CC LIQ 2.5 MG (PROVENTIL ANKIT 2.5MG/3CC) MG 10/06/2018 10/06/2018 ONCE&2332 CEFTRIAXONE PREMIX IV BAG IV 1 GM/50CC (ROCEPHIN PREMIX IV BAG) GM 10/07/2018 10/13/2018 Daily&0030 ALBUTEROL SVN 2.5MG/3CC LIQ 2.5 MG (PROVENTIL ANKIT 2.5MG/3CC) MG 10/07/2018 10/17/2018 PRN Q4H LACTOBACILLUS BULGARIS TAB (LACTINEX BULGA RIS) tab 10/07/2018 10/16/2018 QID&0800,1200,1700,2200 TIOTROPIUM CAP 18 MCG (SPIRIVA) Dose(s) 10/07/2018 10/26/2018 BID&0800,2000 BUDESONIDE/FORMOTEROL INH 16 0 /4.5MCG (SYMBICORT) Dose(s) 10/07/2018 11/05/2018 BID&0800,2000 METHYLPREDNISOLONE VIAL INJ 125 MG/2CC (SOLU-MEDROL VIAL) MG 10/07/2018 10/12/2018 Q8H&0000,0800,1600 FLUTICASONE NASAL INHALER MD I 50 MCG (FLONASE NOSE SPRAY) Dose(s) 10/07/2018 11/05/2018 Daily&0900 LISINOPRIL TAB 5 MG (ZESTRIL) Dose(s) 10/07/2018 11/05/2018 Daily&0900 NICOTINE PATCH PAT 21 MG (NICODERM) MG 10/07/2018 10/13/2018 Daily&0900 PANTOPRAZOLE VIAL INJ 40 MG (PROTONIX IV) MG 10/07/2018 10/16/2018 Daily&0900 TIOTROPIUM CAP 18 MCG (SPIRIVA) MCG 10/08/2018 10/14/2018 Daily&0900 METHYLPREDNISOLONE VIAL INJ 125 MG/2CC (SOLU-MEDROL VIAL) MG 10/08/2018 10/13/2018 Q8H&0400,1200,2000 CEFDINIR CAP 300 MG (OMNICEF) MG 10/09/2018 10/16/2018 BID&0800,2000 PREDNISONE TAB 20 MG (DELTASONE) MG 10/09/2018 10/16/2018 BID&0800,1999 LACTATED RINGERS 1000CC IV BAG INJ ml 06/12/2019 06/19/2019 CONTINUOUSEVERY 0 Hour IPRATROPIUM/ALBUTEROL INH SO LN (DUO-NEB INH SOLN) MLS 06/25/2019 06/25/2019 ONCE&1405 METHYLPREDNISOLONE VIAL INJ 125 MG/2CC (SOLU-MEDROL VIAL) MG 06/25/2019 06/25/2019 ONCE&1415 ACETAMINOPHEN ORAL TABLET 325mg(Tylenol) MG 06/25/2019 07/25/2019 PRN EVERY 6 Hour LACTOBACILLUS BULGARIS TAB (LACTINEX BULGA RIS) 06/25/2019 07/05/2019 QID&0800,1200,1700,2200 IPRATROPIUM/ALBUTEROL INH SO LN (DUO-NEB INH SOLN) MLS 06/25/2019 07/05/2019 QID&0800,1200,1700,2200 ALPRAZOLAM TAB 0.25 MG (XANAX) MG 06/25/2019 07/05/2019 PRN Q6H CLONIDINE TAB 0.1 MG (CATAPRES) MG 06/25/2019 07/02/2019 PRN Q6H ACETAMINOPHEN SUPPOS SUP 650 MG (TYLENOL) MG 06/25/2019 07/02/2019 PRN Q4H ONDANSETRON VIAL INJ 4 MG/2CC (ZOFRAN 2CC VIAL) MG 06/25/2019 07/02/2019 PRN Q6H CALCIUM CARBONATE TAB 500 MG (TUMS) MG 06/25/2019 07/02/2019 PRN Q6H DIPHENHYDRAMINE CAP 25 MG (BENADRYL) MG 06/25/2019 07/02/2019 PRN Q6H ALBUTEROL SVN 2.5MG/3CC LIQ 2.5 MG (PROVENTIL ANKIT 2.5MG/3CC) MG 06/25/2019 07/05/2019 PRN Q4H HYDROCODONE/APAP 5MG/325MG T AB 5 MG/325MG (SUSAN-TAB 5/325) TAB 06/25/2019 07/05/2019 PRN Q6H CEFTRIAXONE PREMIX IV BAG IV 1 GM/50CC (ROCEPHIN PREMIX IV BAG) GM 06/25/2019 07/01/2019 Daily&1800 ALUM/MAG/SIMETH 30CC LIQ (MYLANTA PLUS) cc 06/25/2019 07/05/2019 PRN Q4H GUAIFENESIN - DM LIQ (ROBITUSSIN DM) MLS 06/25/2019 07/02/2019 PRN Q4H Docusate sodium 100mg oral capsule (COLACE ) MG 06/25/2019 07/25/2019 PRN BID FAMOTIDINE VIAL INJ 20 MG/2CC (PEPCID VIAL ) MG 06/25/2019 07/02/2019 BID&0800,2000 RANITIDINE TAB 150 MG (ZANTAC) MG 06/25/2019 07/25/2019 BID&0800,2000 BUDESONIDE INHALATION SUSP A MP 0.5 MG/2CC (PULMICORT) MG 06/25/2019 07/02/2019 BID&0800,2000 LACTULOSE SYRUP LIQ 20 GM/30 CC (CHRONULAC SYRUP) GM 06/25/2019 07/25/2019 BID&0800,2000 METHYLPREDNISOLONE VIAL INJ 125 MG/2CC (SOLU-MEDROL VIAL) MG 06/25/2019 06/30/2019 Q6H&0200,0800,1400,2000 NORMAL SALINE 1000CC IV BAG INJ 0.9 % (NS 1000CC IV BAG) ml 06/25/2019 07/10/2019 CONTINUOUSEVERY 0 Hour MONTELUKAST TAB 10 MG (SINGULAIR) MG 06/25/2019 07/24/2019 Daily&2100 MELATONIN TAB 3 MG (MELATONIN) MG 06/25/2019 07/24/2019 PRN QHS AZITHROMYCIN TAB 500 MG (ZITHROMAX) MG 06/25/2019 06/29/2019 Daily&1700 ENOXAPARIN SYRINGE INJ 40 MG (LOVENOX SYRI NGE) MG 06/25/2019 07/04/2019 Daily&2200 BISACODYL TAB 5 MG (DULCOLAX) MG 06/26/2019 07/02/2019 PRN Daily PANTOPRAZOLE TAB 40 MG (PROTONIX) MG 06/26/2019 07/02/2019 Daily&0900 POLYETHYLENE GLYCOL POWDER U D PWD (MIRALAX 17GM UNIT DOSE PAKS) gm 06/26/2019 07/02/2019 Daily&0900 BISACODYL SUPPOS 10 MG (DULCOLAX SUPPOS) MG 06/26/2019 07/02/2019 PRN Daily MILK OF MAGNESIA LIQ ml 06/26/2019 07/25/2019 PRN Daily ENOXAPARIN SYRINGE INJ 40 MG (LOVENOX SYRI NGE) MG 06/26/2019 07/05/2019 Daily&2000 AZITHROMYCIN TAB 500 MG (ZITHROMAX) MG 06/26/2019 06/30/2019 Daily&2000 ALBUTEROL SVN 2.5MG/3CC LIQ 2.5 MG (PROVENTIL ANKIT 2.5MG/3CC) MG 06/28/2019 07/08/2019 QID&0600,1100,1600,2100 METHYLPREDNISOLONE VIAL INJ 125 MG/2CC (SOLU-MEDROL VIAL) MG 06/28/2019 07/03/2019 BID&0800,2000 LISINOPRIL TAB 5 MG (ZESTRIL) MG 06/29/2019 07/02/2019 Daily&0900 Problems Date Dx Coded Attending Type Code Diagnosis Diagnosed By 05/31/2016 Smith Owusu J44.1 CHRONIC OBSTRUCTIVE PULMONARY DISEASE W (ACUTE) EXACERBATION 05/31/2016 Zhang Duncan 491.21 OBSTRUCTIVE CHRONIC BRONCHITIS WITH (ACUTE) EXACERBATION 05/31/2016 Zhang Duncan J44.1 CHRONIC OBSTRUCTIVE PULMONARY DISEASE WITH (ACUTE) EXACERBATION 05/31/2016 Zhang Duncan 491.21 OBSTRUCTIVE CHRONIC BRONCHITIS WITH (ACUTE) EXACERBATION 05/31/2016 Zhang Duncan J44.1 CHRONIC OBSTRUCTIVE PULMONARY DISEASE WITH (ACUTE) EXACERBATION 06/01/2016 Paoni, Zhang W 491.21 OBSTRUCTIVE CHRONIC BRONCHITIS WITH (ACUTE) EXACERBATION 06/01/2016 Zhang Duncan J44.1 CHRONIC OBSTRUCTIVE PULMONARY DISEASE WITH (ACUTE) EXACERBATION 06/05/2016 Zhang Duncan 401.0 MALIGNANT ESSENTIAL HYPERTENSION 06/05/2016 Zhang Duncan W 491.21 OBSTRUCTIVE CHRONIC BRONCHITIS WITH (ACUTE) EXACERBATION 06/05/2016 Zhang Duncan 530.81 ESOPHAGEAL REFLUX 06/05/2016 Zhang Duncan 786.05 06/05/2016 Zhang Duncan I10 ESSENTIAL (PRIMARY) HYPERTENSION 06/05/2016 Zhang Duncan J44.1 CHRONIC OBSTRUCTIVE PULMONARY DISEASE WITH (ACUTE) EXACERBATION 06/05/2016 Zhang Duncan K21.9 GASTRO- ESOPHAGEAL REFLUX DISEASE WITHOUT ESOPHAGITIS 06/05/2016 Zhang Duncan R06.02 SHORTNESS OF BREATH 02/20/2018 Zhang Duncan 401.9 UNSPECIFIED ESSENTIAL HYPERTENSION 02/20/2018 Zhang Duncan 496 CHRONIC AIRWAY OBSTRUCTION, NOT ELSEWHERE CLASSIFIED 02/20/2018 Zhang Duncan I10 ESSENTIAL (PRIMARY) HYPERTENSION 02/20/2018 Zhang Duncan J44.9 CHRONIC OBSTRUCTIVE PULMONARY DISEASE, UNSPECIFIED 02/20/2018 Zhang Duncan 401.9 UNSPECIFIED ESSENTIAL HYPERTENSION 02/20/2018 Zhang Duncan 496 CHRONIC AIRWAY OBSTRUCTION, NOT ELSEWHERE CLASSIFIED 02/20/2018 Zhang Duncan I10 ESSENTIAL (PRIMARY) HYPERTENSION 02/20/2018 Zhang Duncan J44.9 CHRONIC OBSTRUCTIVE PULMONARY DISEASE, UNSPECIFIED 02/20/2018 W 401.9 UNSP ECIFIED ESSENTIAL HYPERTENSION 02/20/2018 W 496 CHRONI C AIRWAY OBSTRUCTION, NOT ELSEWHERE CLASSIFIED 02/20/2018 W I10 ESSENT IAL (PRIMARY) HYPERTENSION 02/20/2018 W 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, UNSPECIFIED 02/20/2018 Zhang Duncan 401.9 UNSPECIFIED ESSENTIAL HYPERTENSION 02/20/2018 Zhang Duncan 496 CHRONIC AIRWAY OBSTRUCTION, NOT ELSEWHERE CLASSIFIED 02/20/2018 Zhang Duncan I10 ESSENTIAL (PRIMARY) HYPERTENSION 02/20/2018 Zhang Duncan J44.9 CHRONIC OBSTRUCTIVE PULMONARY DISEASE, UNSPECIFIED 03/07/2018 Francesco Castillo W 401.0 MALIGNANT ESSENTIAL HYPERTENSION 03/07/2018 Francesco Castillo W 491.20 OBSTRUCTIVE CHRONIC BRONCHITIS, WITHOUT EXACERBATION 03/07/2018 Francesco Castillo W I10 ESSENTIAL (PRIMARY) HYPERTENSION 03/07/2018 Francesco Castillo W J44.9 CHRONIC OBSTRUCTIVE PULMONARY DISEASE, UNSPECIFIED 05/29/2018 W 466.0 ACUT E BRONCHITIS 05/29/2018 W J20.9 ACUT E BRONCHITIS, UNSPECIFIED 06/18/2018 Francesco Castillo W 401.0 MALIGNANT ESSENTIAL HYPERTENSION 06/18/2018 Francesco Castillo W 491.20 OBSTRUCTIVE CHRONIC BRONCHITIS, WITHOUT EXACERBATION 06/18/2018 Francesco Castillo W I10 ESSENTIAL (PRIMARY) HYPERTENSION 06/18/2018 Francesco Castillo W J44.9 CHRONIC OBSTRUCTIVE PULMONARY DISEASE, UNSPECIFIED 10/07/2018 Zhang Duncan W 491.21 OBSTRUCTIVE CHRONIC BRONCHITIS WITH (ACUTE) EXACERBATION 10/07/2018 Zhang Duncan J44.0 CHRONIC OBSTRUCTIVE PULMONARY DISEASE WITH ACUTE LOWER RESPIRATORY INFECTION 12/24/2018 W V70.0 ROUT INE GENERAL MEDICAL EXAMINATION AT A HEALTH CARE FACILITY 12/24/2018 W Z00.00 ENC OUNTER FOR GENERAL ADULT MEDICAL EXAMINATION WITHOUT ABNORMAL FINDINGS 12/25/2018 Zhang Duncan W V70.0 ROUTINE GENERAL MEDICAL EXAMINATION AT A HEALTH CARE FACILITY 12/25/2018 Zhang Duncan W Z00.00 ENCOUNTER FOR GENERAL ADULT MEDICAL EXAMINATION WITHOUT ABNORMAL FINDINGS 12/25/2018 Zhang Duncan V70.0 ROUTINE GENERAL MEDICAL EXAMINATION AT A HEALTH CARE FACILITY 12/25/2018 Zhang Duncan W Z00.00 ENCOUNTER FOR GENERAL ADULT MEDICAL EXAMINATION WITHOUT ABNORMAL FINDINGS 12/26/2018 Zhang Duncan W V70.0 ROUTINE GENERAL MEDICAL EXAMINATION AT A HEALTH CARE FACILITY 12/26/2018 Zhang Duncan Z00.00 ENCOUNTER FOR GENERAL ADULT MEDICAL EXAMINATION WITHOUT ABNORMAL FINDINGS 12/26/2018 Zhang Duncan V70.0 ROUTINE GENERAL MEDICAL EXAMINATION AT A HEALTH CARE FACILITY 12/26/2018 Zhang Duncan W Z00.00 ENCOUNTER FOR GENERAL ADULT MEDICAL EXAMINATION WITHOUT ABNORMAL FINDINGS 06/15/2019 Smith Owusu W 562.12 DIVERTICULOSIS OF COLON WITH HEMORRHAGE 06/15/2019 Smith Owusu W I10 ESSENTIAL (PRIMARY) HYPERTENSION 06/15/2019 Smith Owusu W J15.7 PNEUMONIA DUE TO MYCOPLASMA PNEUMONIAE 06/15/2019 Smith Owusu W J20.9 ACUTE BRONCHITIS, UNSPECIFIED 06/15/2019 Smith Owusu J44.1 CHRONIC OBSTRUCTIVE PULMONARY DISEASE W (ACUTE) EXACERBATION 06/15/2019 Smith Owusu J44.9 CHRONIC OBSTRUCTIVE PULMONARY DISEASE, UNSPECIFIED 06/15/2019 Smith Owusu K21.9 GASTRO- ESOPHAGEAL REFLUX DISEASE WITHOUT ESOPHAGITIS 06/15/2019 Smith Owusu K57.30 DVRTCLOS OF LG INT W/O PERFORATION OR ABSCESS W/O BLEEDING 06/15/2019 Smith Owusu W K64.1 SECOND DEGREE HEMORRHOIDS 06/15/2019 Smith Owusu W R06.02 SHORTNESS OF BREATH 06/15/2019 Smith Owusu Z00.00 ENCNTR FOR GENERAL ADULT MEDICAL EXAM W/O ABNORMAL FINDINGS 06/24/2019 Smith Owusu L42 PITYRIASIS ROSEA 06/25/2019 Holly Bernal W 483.0 PNEUMONIA DUE TO MYCOPLASMA PNEUMONIAE 06/25/2019 Holly Bernal 491.21 OBSTRUCTIVE CHRONIC BRONCHITIS WITH (ACUTE) EXACERBATION 06/25/2019 Holly Bernal J15.7 PNEUMONIA DUE TO MYCOPLASMA PNEUMONIAE 06/25/2019 Holly Bernal J44.1 CHRONIC OBSTRUCTIVE PULMONARY DISEASE WITH (ACUTE) EXACERBATION 06/29/2019 Holly Bernal 483.0 PNEUMONIA DUE TO MYCOPLASMA PNEUMONIAE 06/29/2019 Holly Bernal 491.21 OBSTRUCTIVE CHRONIC BRONCHITIS WITH (ACUTE) EXACERBATION 06/29/2019 Holly Bernal J15.7 PNEUMONIA DUE TO MYCOPLASMA PNEUMONIAE 06/29/2019 Holly Bernal J44.1 CHRONIC OBSTRUCTIVE PULMONARY DISEASE WITH (ACUTE) EXACERBATION 07/16/2019 ASHLEY BALDWIN DO, Ot Z01.818 ENCOUNTER FOR OTHER PREPROCEDURAL EXAMIN 07/23/2019 ASHLEY BALDWIN DO, Ot Z01.818 ENCOUNTER FOR OTHER PREPROCEDURAL EXAMIN 07/27/2019 ASHLEY BALDWIN DO, Ot G62. 9 POLYNEUROPATHY, UNSPECIFIED 07/27/2019 ASHLEY BALDWIN DO Ot I10 ESSENTIAL (PRIMARY) HYPERTENSION 07/27/2019 ASHLEY BALDWIN DO, Ot J18. 9 PNEUMONIA, UNSPECIFIED ORGANISM 07/27/2019 NICOLASA DO, ASHLEY M Ot J44. 9 CHRONIC OBSTRUCTIVE PULMONARY DISEASE, U 07/27/2019 ASHLEY BALDWIN DO Ot R91. 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 07/27/2019 ASHLEY BALDWIN DO Ot Z87.891 PERSONAL HISTORY OF NICOTINE DEPENDENCE 07/31/2019 HANDY KNOWLESINE Doc DEHAIRING MACHINE TENDER Ot J30.9 ALLERGIC RHINITIS, UNSPECIFIED 07/31/2019 ELENI, SUZAN E DEHAIRING MACHINE TENDER Ot J43.9 EMPHYSEMA, UNSPECIFIED 07/31/2019 ELENI, SUZAN E DEHAIRING MACHINE TENDER Ot R05 COUGH 07/31/2019 ELENI, SUZAN E DEHAIRING MACHINE TENDER Ot R06.00 DYSPNEA, UNSPECIFIED 07/31/2019 ELENI, SUZAN E DEHAIRING MACHINE TENDER Ot R06.89 OTHER ABNORMALITIES OF BREATHING 07/31/2019 ELENI SUZAN E DEHAIRING MACHINE TENDER Ot R09.02 HYPOXEMIA 07/31/2019 ELENI SUZAN E DEHAIRING MACHINE TENDER Ot R91.8 OTHER NONSPECIFIC ABNORMAL FINDING OF BRANDON 07/31/2019 HANDY KNOWLESINE Doc DEHAIRING MACHINE TENDER Ot Z72.0 TOBACCO USE 08/05/2019 ASHLEY BALDWIN DO Ot G62. 9 POLYNEUROPATHY, UNSPECIFIED 08/05/2019 ASHLEY BALDWIN DO Ot I10 ESSENTIAL (PRIMARY) HYPERTENSION 08/05/2019 ASHLEY BALDWIN DO Ot J18. 9 PNEUMONIA, UNSPECIFIED ORGANISM 08/05/2019 ASHLEY BALDWIN DO Ot J44. 9 CHRONIC OBSTRUCTIVE PULMONARY DISEASE, U 08/05/2019 ASHLEY BALDWIN DO Ot R91. 8 OTHER NONSPECIFIC ABNORMAL FINDING OF BRANDON 08/05/2019 ASHLEY BALDWIN DO Ot Z79.899 OTHER RESIDENTIAL (CURRENT) DRUG THERAPY 08/05/2019 ASHLEY BALDWIN DO Ot Z87.891 PERSONAL HISTORY OF NICOTINE DEPENDENCE 08/05/2019 ASHLEY BALDWIN DO Ot G62. 9 POLYNEUROPATHY, UNSPECIFIED 08/05/2019 ASHLEY BADLWIN DO Ot I10 ESSENTIAL (PRIMARY) HYPERTENSION 08/05/2019 ASHLEY BALDWIN DO Ot J18. 9 PNEUMONIA, UNSPECIFIED ORGANISM 08/05/2019 ASHLEY BALDWIN DO Ot J44. 9 CHRONIC OBSTRUCTIVE PULMONARY DISEASE, U 08/05/2019 ASHLEY BALDWIN DO Ot R91. 8 OTHER NONSPECIFIC ABNORMAL FINDING OF BRANDON 08/05/2019 ASHLEY BALDWIN DO Ot Z79.899 OTHER RESIDENTIAL (CURRENT) DRUG THERAPY 08/05/2019 ASHLEY BALDWIN DO Ot Z87.891 PERSONAL HISTORY OF NICOTINE DEPENDENCE 08/12/2019 SUZAN KNOWLES DEHAIRING MACHINE TENDER Ot J30.9 ALLERGIC RHINITIS, UNSPECIFIED 08/12/2019 SUZAN KNOWLES DEHAIRING MACHINE TENDER Ot J43.9 EMPHYSEMA, UNSPECIFIED 08/12/2019 HANDY KNOWLESINE Doc DEHAIRING MACHINE TENDER Ot R05 COUGH 08/12/2019 SUZAN KNOWLES DEHAIRING MACHINE TENDER Ot R06.00 DYSPNEA, UNSPECIFIED 08/12/2019 SUZAN KNOWLES DEHAIRING MACHINE TENDER Ot R06.89 OTHER ABNORMALITIES OF BREATHING 08/12/2019 SUZAN KNOWLES DEHAIRING MACHINE TENDER Ot R09.02 HYPOXEMIA 08/12/2019 HANDY KNOWLESINE Doc DEHAIRING MACHINE TENDER Ot R91.8 OTHER NONSPECIFIC ABNORMAL FINDING OF BRANDON 08/12/2019 SUZAN KNOWLES DEHAIRING MACHINE TENDER Ot Z72.0 TOBACCO USE Procedures There is no data. Results Test Result Range Ethanol - 05/31/16 09:16 Ethanol <10 mg/dL 20-80 Arterial Blood Gas - 06/01/16 05:25 Base 5.00 mmol/L 1.80-4.20 HCO3 30 mmol/L 20-31 O2 Sat 91 ROOM AIR % 95-100 pCO2 47 mm/Hg 35-45 pH 7.41 7.35-7.45 PO2 61 mm/Hg 80-95 Comprehensive Metabolic Panel - 06/02/16 07:24 Albumin 3.9 g/dL 3.6-5.1 ALP 59 U/L 35-130 ALT 31 U/L 6-45 Anion Gap 15 6-14 AST 30 U/L 2-40 BUN 18 mg/dL 5-25 Calcium 9.3 mg/dL 8.3-10.4 Chloride 100 mmol/L 95-114 CO2 28 mEq/L 22-33 Creat 0.74 mg/dL 0.50-1.50 eGFR 104 mL/min/1.73m2 >59 Globulin 2.7 g/dL 2.3-3.5 Glucose 156 mg/dL 70-110 Osmo 290 280-295 Potassium 4.6 mmol/L 3.5-5.3 Sodium 138 mmol/L 134-148 TBil 0.4 mg/dL 0.2-1.2 TP 6.6 g/dL 6.0-8.3 CBC with Auto Diff - 06/04/16 07:00 Baso% 0.00 % 0.00-2.50 Eos 0.0 K/uL 0.0-0.7 Eos% 0.0 % 0.0-7.0 Hct 45.3 % 42.0-52.0 Hgb 14.8 g/dL 14.0-17.0 Lym 1.13 K/uL 0.60-3.40 Lym% 11.5 % 10.0-50.0 MCH 31.9 pg 27.0-31.2 MCHC 32.7 g/dL 32.0-36.0 MCV 97.6 fL 80.0-97.0 Rosebud% 5.5 % 0.0-12.0 MPV 10.9 fL 7.4-10.0 Christie% 83.0 % 37.0-80.0 Plt 168 K/uL 150-400 RBC 4.64 M/uL 4.20-5.40 RDW 12.7 % 11.6-14.8 WBC 9.86 K/uL 5.00-10.00 Christie 8.19 K/uL 2.00-6.90 Rosebud 0.5 K/uL 0.0-0.9 Baso 0.0 K/uL 0.0-0.2 PSA Yearly Screen - 02/20/18 10:25 PSA TOTAL 1.6 ng/mL 0.0-4.0 Pulmonary Function Hemoglobin - 02/27/18 12:38 Hgb 16.2 g/dL 14.0-17.0 Cardiac Panel - 10/06/18 22:45 CK 113 U/L 26-174 CK-MB 4.2 ng/ml 0.0-9.2 Myoglobin 76.5 ng/ml 1.6-154.9 Troponin <0.020 ng/mL 0.0-0.4 Mycoplasma - 10/06/18 23:10 Mycoplasma Negative Negative Blood Culture - 10/06/18 23:10 PRELIM CULTURE RESULTS Blood Culture Negativ e, No Growth Day 1 FINAL CULTURE RESULTS Blood Culture Negative , No Growth Day 5 MEDIA PLATED Setup at 23:35 on 10/06/2018X0 [id number] Culture Media Position C42 CULTURE SOURCE iv start, Left Arm Arterial Blood Gas - 10/06/18 23:15 Base 2.00 mmol/L 1.80-4.20 HCO3 27 mmol/L 20-31 O2 Sat 86 Room Air % 95-100 pCO2 44 mm/Hg 35-45 pH 7.39 7.35-7.45 PO2 53 mm/Hg 80-95 Blood Culture - 10/06/18 23:15 PRELIM CULTURE RESULTS Blood Culture Negativ e, No Growth Day 1 FINAL CULTURE RESULTS Blood Culture Negative , No Growth Day 5 MEDIA PLATED Setup at 23:35 on 10/06/2018X0 [id number] Culture Media Position C49 CULTURE SOURCE arterial blood, Left wrist BMP - 10/07/18 05:20 Anion Gap 13 6-14 BUN 16 mg/dL 5-25 Calcium 9.4 mg/dL 8.3-10.4 Chloride 103 mmol/L 95-114 CO2 26 mEq/L 22-33 Creat 0.74 mg/dL 0.50-1.50 eGFR 104 mL/min/1.73m2 >59 Glucose 132 mg/dL 70-110 Osmo 288 280-295 Potassium 4.4 mmol/L 3.5-5.3 Sodium 138 mmol/L 134-148 Sputum Culture - 10/07/18 07:11 PRELIM CULTURE RESULTS Scant Gram Negative L actose Bearingizer BETZAIDA / ID to Follow Further Testing Pending FINAL CULTURE RESULTS Scant Gram Negative La ctose Bearingizer BETZAIDA/ID to [id number] Gram Positive Mixed Normal Lena MEDIA PLATED Setup at 07:34 on 10/07/2018 Sensi - 10/07/18 07:11 FINAL CULTURE RESULTS Enterobacter cloacae (Isolat e 1) Ampicillin/Sulbactam <=8/4 Ampicillin 16 Amoxicillin/K Clavulanate >16/8 Ceftriaxone <=8 Ciprofloxacin <=1 Nitrofurantoin <=32 Gentamicin <=4 Levofloxacin <=2 Trimethoprim/ Sulfamethoxazole <=2/38 Tetracycline <=4 Amikacin <=16 Aztreonam <=8 Ceftazidime <=1 Ceftazidime/K Clavulanate <=0.25 Cephalothin >16 Cefotaxime <=2 Cefotaxime/K Clavulanate <=0.5 Cefoxitin >16 Cefazolin >16 Cefepime <=8 Cefuroxime <=4 Ertapenem <=1 Imipenem <=4 Meropenem <=4 Piperacillin/Tazobactam <=16 Piperacillin <=16 Tigecycline <=2 Tobramycin <=4 PSA Yearly Screen - 12/25/18 08:39 PSA TOTAL 1.0 ng/mL 0.0-4.0 BMP - 06/12/19 07:36 Anion Gap 15 6-14 BUN 10 mg/dL 5-25 Calcium 9.8 mg/dL 8.3-10.4 Chloride 102 mmol/L 95-114 CO2 27 mEq/L 22-33 Creat 0.81 mg/dL 0.50-1.50 eGFR 93 mL/min/1.73m2 >59 Glucose 100 mg/dL 70-110 Osmo 286 280-295 Potassium 4.6 mmol/L 3.5-5.3 Sodium 139 mmol/L 134-148 Surgical Pathology - 06/15/19 14:17 Surg Path Sent to [facility] Pathology Arterial Blood Gas - 06/25/19 13:58 Base 3.00 mmol/L 1.80-4.20 HCO3 28 mmol/L 20-31 O2 Sat 88 RM AIR % 95-100 pCO2 49 mm/Hg 35-45 pH 7.37 7.35-7.45 PO2 57 mm/Hg 80-95 Mycoplasma - 06/25/19 14:05 Mycoplasma Positive Negative Cardiac Panel - 06/25/19 14:05 CK 87 U/L 26-174 CK-MB 3.5 ng/ml 0.0-9.2 Myoglobin 58.0 ng/ml 1.6-154.9 Troponin <0.020 ng/mL 0.0-0.4 Lactic Acid - 06/25/19 14:30 Lactic Acid 6.9 mg/dL 4.5-19.8 Arterial Blood Gas - 06/25/19 15:23 Base 2.00 mmol/L 1.80-4.20 HCO3 28 mmol/L 20-31 O2 Sat 96 2L % 95-100 pCO2 49 mm/Hg 35-45 pH 7.37 7.35-7.45 PO2 86 mm/Hg 80-95 Comprehensive Metabolic Panel - 06/26/19 05:15 Albumin 3.5 g/dL 3.6-5.1 ALP 68 U/L 35-130 ALT 20 U/L 6-45 Anion Gap 12 6-14 AST 14 U/L 2-40 BUN 14 mg/dL 5-25 Calcium 9.1 mg/dL 8.3-10.4 Chloride 105 mmol/L 95-114 CO2 26 mEq/L 22-33 Creat 0.69 mg/dL 0.50-1.50 eGFR 112 mL/min/1.73m2 >59 Globulin 2.2 g/dL 2.3-3.5 Glucose 151 mg/dL 70-110 Osmo 290 280-295 Potassium 4.4 mmol/L 3.5-5.3 Sodium 139 mmol/L 134-148 TBil 0.4 mg/dL 0.2-1.2 TP 5.7 g/dL 6.0-8.3 Lactic Acid - 06/26/19 06:13 Lactic Acid 6.1 mg/dL 4.5-19.8 Comprehensive Metabolic Panel - 06/27/19 05:29 Albumin 3.8 g/dL 3.6-5.1 ALP 69 U/L 35-130 ALT 22 U/L 6-45 Anion Gap 11 6-14 AST 18 U/L 2-40 BUN 13 mg/dL 5-25 Calcium 9.3 mg/dL 8.3-10.4 Chloride 104 mmol/L 95-114 CO2 29 mEq/L 22-33 Creat 0.67 mg/dL 0.50-1.50 eGFR 116 mL/min/1.73m2 >59 Globulin 2.2 g/dL 2.3-3.5 Glucose 136 mg/dL 70-110 Osmo 291 280-295 Potassium 4.4 mmol/L 3.5-5.3 Sodium 140 mmol/L 134-148 TBil 0.3 mg/dL 0.2-1.2 TP 6.0 g/dL 6.0-8.3 Comprehensive Metabolic Panel - 06/28/19 05:49 Albumin 3.2 g/dL 3.6-5.1 ALP 60 U/L 35-130 ALT 22 U/L 6-45 Anion Gap 9 6-14 AST 18 U/L 2-40 BUN 14 mg/dL 5-25 Calcium 9.0 mg/dL 8.3-10.4 Chloride 104 mmol/L 95-114 CO2 31 mEq/L 22-33 Creat 0.64 mg/dL 0.50-1.50 eGFR 122 mL/min/1.73m2 >59 Globulin 1.9 g/dL 2.3-3.5 Glucose 127 mg/dL 70-110 Osmo 289 280-295 Potassium 4.5 mmol/L 3.5-5.3 Sodium 139 mmol/L 134-148 TBil 0.3 mg/dL 0.2-1.2 TP 5.1 g/dL 6.0-8.3 Comprehensive Metabolic Panel - 06/29/19 05:48 Albumin 3.3 g/dL 3.6-5.1 ALP 59 U/L 35-130 ALT 28 U/L 6-45 Anion Gap 10 6-14 AST 18 U/L 2-40 BUN 15 mg/dL 5-25 Calcium 9.3 mg/dL 8.3-10.4 Chloride 102 mmol/L 95-114 CO2 31 mEq/L 22-33 Creat 0.65 mg/dL 0.50-1.50 eGFR 120 mL/min/1.73m2 >59 Globulin 2.4 g/dL 2.3-3.5 Glucose 108 mg/dL 70-110 Osmo 288 280-295 Potassium 4.3 mmol/L 3.5-5.3 Sodium 139 mmol/L 134-148 TBil 0.4 mg/dL 0.2-1.2 TP 5.7 g/dL 6.0-8.3 Sputum Gram stain - 07/22/19 08:20 Sputum Gram stain No bacteria NRG Bacteria identification in bronchial spe cimen by aerobe culture - 07/22/19 08:20 Bacteria identification in bronchial specimen by aerob e culture NG NRG Mycobacterium species detection by organ ism specific culture - 07/22/19 08:20 Fungus culture - 07/22/19 08:20 Sputum Gram stain - 07/22/19 08:21 Sputum Gram stain No bacteria seen NRG Bacteria identification in bronchial spe cimen by aerobe culture - 07/22/19 08:21 QUANTITY OF GROWTH . NRG Bacteria identification in bronchial specimen by aerob e culture USUAL RESP NRG FTX;REPORTABLE <1,000 CFU/ML NRG Mycobacterium species detection by organ ism specific culture - 07/22/19 08:21 Fungus culture - 07/22/19 08:21 Complete blood count (CBC) with automate d white blood cell (WBC) differential - 08/13/19 17:41 Blood leukocytes automated count (number/volume) 8.8 10*3/uL 4.3-11.0 Blood erythrocytes automated count (number/volume) 4.70 10*6/uL 4.35-5.85 Venous blood hemoglobin measurement (mass/volume) 15.3 g/dL 13.3-17.7 Blood hematocrit (volume fraction) 47 % 40-54 Automated erythrocyte mean corpuscular volume 99 [ foz_us] 80-99 Automated erythrocyte mean corpuscular h emoglobin (mass per erythrocyte) 33 pg 25-34 Automated erythrocyte mean corpuscular h emoglobin concentration measurement (mass/volume) 33 g/dL 32-36 Automated erythrocyte distribution width ratio 13. 4 % 10.0- 14.5 Automated blood platelet count (count/volume) 167 10*3/uL 130-400 Automated blood platelet mean volume measurement 10.5 [foz_us] 7.4-10.4 Automated blood neutrophils/100 leukocytes 63 % 42-75 Automated blood lymphocytes/100 leukocytes 23 % 12-44 Blood monocytes/100 leukocytes 13 % 0-12 Automated blood eosinophils/100 leukocytes 0 % 0-10 Automated blood basophils/100 leukocytes 0 % 0-10 Blood neutrophils automated count (number/volume) 5.6 10*3 1.8-7.8 Blood lymphocytes automated count (number/volume) 2.0 10*3 1.0-4.0 Blood monocytes automated count (number/volume) 1. 2 10*3 0.0-1.0 Automated eosinophil count 0.0 10*3/uL 0 .0-0.3 Automated blood basophil count (count/volume) 0.0 10*3/uL 0.0-0.1 Blood lactic acid measurement (moles/vol ume) - 08/13/19 17:41 Blood lactic acid measurement (moles/volume) 1.36 mmol/L 0.50-2.00 Influenza virus A and B antigen detectio n - 08/13/19 17:41 FLU RESULT NEGATIVE FOR INFLUENZA A AND B ANTIGENS BY [facility] Comprehensive metabolic panel - 08/13/19 17:41 Serum or plasma sodium measurement (moles/volume) 138 mmol/L 135-145 Serum or plasma potassium measurement (moles/volume) 5.0 mmol/L 3.6-5.0 Serum or plasma chloride measurement (moles/volume) 101 mmol/L 98-107 Carbon dioxide 31 mmol/L 21-32 Serum or plasma anion gap determination (moles/volume) 6 mmol/L 5-14 Serum or plasma urea nitrogen measurement (mass/volume ) 14 mg/dL 7-18 Serum or plasma creatinine measurement (mass/volume) 0.79 mg/dL 0.60-1.30 Serum or plasma urea nitrogen/creatinine mass ratio 18 NRG Serum or plasma creatinine measurement w ith calculation of estimated glomerular filtration rate > NRG Serum or plasma glucose measurement (mass/volume) 119 mg/dL 70-105 Serum or plasma calcium measurement (mass/volume) 9.3 mg/dL 8.5-10.1 Serum or plasma total bilirubin measurement (mass/volu me) 0.3 mg/dL 0.1-1.0 Serum or plasma alkaline phosphatase quita surement (enzymatic activity/volume) 78 U/L 40-136 Serum or plasma aspartate aminotransfera se measurement (enzymatic activity/volume) 24 U/L 5-34 Serum or plasma alanine aminotransferase measurement (enzymatic activity/volume) 21 U/L 0-55 Serum or plasma protein measurement (mass/volume) 6.9 g/dL 6.4-8.2 Serum or plasma albumin measurement (mass/volume) 3.9 g/dL 3.2-4.5 CALCIUM CORRECTED 9.4 mg/dL 8.5-10.1 Magnesium - 08/13/19 17:41 Magnesium 1.9 mg/dL 1.6-2.4 Serum or plasma C reactive protein measu rement (mass/volume) - 08/13/19 17:41 Serum or plasma C reactive protein measurement (mass/v olume) 2.70 mg/dL 0.00-0.50 Serum or plasma lithium measurement (mol es/volume) - 08/13/19 17:41 BNP PT 18.4 pg/mL <100.0 PROCALCITONIN (PCT) - 08/13/19 17:41 PROCALCITONIN (PCT) 0.02 ng/mL <0.10 Bacterial blood culture - 08/13/19 17:41 Bacterial blood culture NG NRG Bacterial blood culture - 08/13/19 17:55 Bacterial blood culture NG NRG Complete blood count (CBC) with automate d white blood cell (WBC) differential - 08/14/19 03:00 Blood leukocytes automated count (number/volume) 3.8 10*3/uL 4.3-11.0 Blood erythrocytes automated count (number/volume) 4.52 10*6/uL 4.35-5.85 Venous blood hemoglobin measurement (mass/volume) 14.4 g/dL 13.3-17.7 Blood hematocrit (volume fraction) 45 % 40-54 Automated erythrocyte mean corpuscular volume 99 [ foz_us] 80-99 Automated erythrocyte mean corpuscular h emoglobin (mass per erythrocyte) 32 pg 25-34 Automated erythrocyte mean corpuscular h emoglobin concentration measurement (mass/volume) 32 g/dL 32-36 Automated erythrocyte distribution width ratio 13. 4 % 10.0- 14.5 Automated blood platelet count (count/volume) 161 10*3/uL 130-400 Automated blood platelet mean volume measurement 10.6 [foz_us] 7.4-10.4 Automated blood neutrophils/100 leukocytes 90 % 42-75 Automated blood lymphocytes/100 leukocytes 8 % 12-44 Blood monocytes/100 leukocytes 2 % 0-12 Automated blood eosinophils/100 leukocytes 0 % 0-10 Automated blood basophils/100 leukocytes 0 % 0-10 Blood neutrophils automated count (number/volume) 3.4 10*3 1.8-7.8 Blood lymphocytes automated count (number/volume) 0.3 10*3 1.0-4.0 Blood monocytes automated count (number/volume) 0. 1 10*3 0.0-1.0 Automated eosinophil count 0.0 10*3/uL 0 .0-0.3 Automated blood basophil count (count/volume) 0.0 10*3/uL 0.0-0.1 Manual absolute plasma cell count - 08/01 08/20 03:00 Blood monocytes/100 leukocytes 3 % NRG Manual blood segmented neutrophils/100 leukocytes 85 % NRG Blood band neutrophils/100 leukocytes 2 % NRG Manual blood lymphocytes/100 leukocytes 9 % NRG Manual eosinophils/100 leukocytes in nose 0 % NRG Manual blood basophils/100 leukocytes 0 % NRG Blood lymphocytes variant/100 leukocytes 1 % NRG Blood erythrocyte morphology finding identification [facility] Comprehensive metabolic panel - 08/14/19 03:00 Serum or plasma sodium measurement (moles/volume) 137 mmol/L 135-145 Serum or plasma potassium measurement (moles/volume) 4.3 mmol/L 3.6-5.0 Serum or plasma chloride measurement (moles/volume) 99 mmol/L 98-107 Carbon dioxide 26 mmol/L 21-32 Serum or plasma anion gap determination (moles/volume) 12 mmol/L 5-14 Serum or plasma urea nitrogen measurement (mass/volume ) 11 mg/dL 7-18 Serum or plasma creatinine measurement (mass/volume) 0.67 mg/dL 0.60-1.30 Serum or plasma urea nitrogen/creatinine mass ratio 16 NRG Serum or plasma creatinine measurement w ith calculation of estimated glomerular filtration rate > NRG Serum or plasma glucose measurement (mass/volume) 155 mg/dL 70-105 Serum or plasma calcium measurement (mass/volume) 9.0 mg/dL 8.5-10.1 Serum or plasma total bilirubin measurement (mass/volu me) 0.3 mg/dL 0.1-1.0 Serum or plasma alkaline phosphatase quita surement (enzymatic activity/volume) 77 U/L 40-136 Serum or plasma aspartate aminotransfera se measurement (enzymatic activity/volume) 20 U/L 5-34 Serum or plasma alanine aminotransferase measurement (enzymatic activity/volume) 20 U/L 0-55 Serum or plasma protein measurement (mass/volume) 6.2 g/dL 6.4-8.2 Serum or plasma albumin measurement (mass/volume) 3.7 g/dL 3.2-4.5 CALCIUM CORRECTED 9.2 mg/dL 8.5-10.1 Arterial blood gas measurement - 0 08:26 Blood pCO2 47 mm[Hg] 35-45 Blood pO2 89 mm[Hg] 79-93 Arterial blood bicarbonate measurement (moles/volume) 27 mmol/L 23-27 Arterial blood base excess by calculation 2.3 mmol /L -2.5-2.5 Arterial blood oxygen saturation measurement 97 % 94-100 * Inhaled oxygen flow rate 30 NRG Arterial blood pH measurement with patient temperature correction 7.38 7.37-7.43 Arterial blood carbon dioxide, total measurement (mole s/volume) 28.7 mmol/L 21.0-31.0 Body site RIGHT RADIAL NRG Assessment of wrist artery patency prior to arterial p uncture YES-POS NRG Setting of ventilation mode NO NR G Measurement of body temperature 35.8 NRG Complete blood count (CBC) with automate d white blood cell (WBC) differential - 08/15/19 05:00 Blood leukocytes automated count (number/volume) 9.3 10*3/uL 4.3-11.0 Blood erythrocytes automated count (number/volume) 4.69 10*6/uL 4.35-5.85 Venous blood hemoglobin measurement (mass/volume) 14.9 g/dL 13.3-17.7 Blood hematocrit (volume fraction) 46 % 40-54 Automated erythrocyte mean corpuscular volume 99 [ foz_us] 80-99 Automated erythrocyte mean corpuscular h emoglobin (mass per erythrocyte) 32 pg 25-34 Automated erythrocyte mean corpuscular h emoglobin concentration measurement (mass/volume) 32 g/dL 32-36 Automated erythrocyte distribution width ratio 13. 3 % 10.0- 14.5 Automated blood platelet count (count/volume) 181 10*3/uL 130-400 Automated blood platelet mean volume measurement 10.7 [foz_us] 7.4-10.4 Automated blood neutrophils/100 leukocytes 90 % 42-75 Automated blood lymphocytes/100 leukocytes 6 % 12-44 Blood monocytes/100 leukocytes 5 % 0-12 Automated blood eosinophils/100 leukocytes 0 % 0-10 Automated blood basophils/100 leukocytes 0 % 0-10 Blood neutrophils automated count (number/volume) 8.3 10*3 1.8-7.8 Blood lymphocytes automated count (number/volume) 0.5 10*3 1.0-4.0 Blood monocytes automated count (number/volume) 0. 4 10*3 0.0-1.0 Automated eosinophil count 0.0 10*3/uL 0 .0-0.3 Automated blood basophil count (count/volume) 0.0 10*3/uL 0.0-0.1 Whole blood basic metabolic panel - 08/01 09/20 05:00 Serum or plasma sodium measurement (moles/volume) 139 mmol/L 135-145 Serum or plasma potassium measurement (moles/volume) 4.2 mmol/L 3.6-5.0 Serum or plasma chloride measurement (moles/volume) 100 mmol/L 98-107 Carbon dioxide 28 mmol/L 21-32 Serum or plasma anion gap determination (moles/volume) 11 mmol/L 5-14 Serum or plasma urea nitrogen measurement (mass/volume ) 14 mg/dL 7-18 Serum or plasma creatinine measurement (mass/volume) 0.75 mg/dL 0.60-1.30 Serum or plasma urea nitrogen/creatinine mass ratio 19 NRG Serum or plasma creatinine measurement w ith calculation of estimated glomerular filtration rate > NRG Serum or plasma glucose measurement (mass/volume) 227 mg/dL 70-105 Serum or plasma calcium measurement (mass/volume) 9.6 mg/dL 8.5-10.1 Encounters ACCT No. Visit Date/Time Discharge Status Pt. Type Provider Facility Loc./Unit Complaint [id number] 07/02/2019 13:35:00 07/02/2019 23:59 :00 DIS Outpatient Zhang Duncan [id number] 06/25/2019 13:46:00 06/29/2019 16:15 :00 DIS Inpatient Holly Bernal enter ICU [id number] 06/25/2019 11:43:00 06/25/2019 23:59 :00 DIS Outpatient Zhang Duncan [id number] 06/15/2019 00:00:00 06/15/2019 14:32 :00 DIS Outpatient Smith Owusu [id number] 06/12/2019 07:31:00 06/12/2019 23:59 :00 DIS Outpatient Smith Owusu [id number] 12/26/2018 09:25:00 12/26/2018 23:59: 00 DIS Outpatient Zhang Duncan [id number] 12/25/2018 08:36:00 12/25/2018 23:59: 00 DIS Outpatient Zhang Duncan [id number] 10/06/2018 22:38:00 10/10/2018 11:25: 00 DIS Outpatient Zhang Duncan [facility]G [id number] 03/10/2018 13:03:00 06/18/2018 14:25: 00 DIS Outpatient Francesco Castillo [id number] 03/07/2018 09:43:00 03/07/2018 23:59: 00 DIS Outpatient Francesco Castillo [id number] 02/27/2018 12:26:00 02/27/2018 23:59: 00 DIS Outpatient Zhang Duncan [id number] 02/20/2018 10:20:00 02/20/2018 23:59: 00 DIS Outpatient Zhang Duncan [id number] 05/31/2016 08:48:00 06/05/2016 11:38: 00 DIS Inpatient Zhang Duncan [facility] ter ER [id number] 12/24/2018 09:12:00 Document Registration [id number] 05/29/2018 10:51:00 Document Registration [id number] 02/20/2018 09:17:00 Document Registration [id number] 05/31/2016 09:08:20 Document Registration [id number] 07/22/2019 06:59:00 23:59:59 CLS Outpatient ASHLEY BALDWIN DO [facility] ENDO DYSPNEA/LUNG MASS/COUGH [id number] 07/17/2019 06:55:00 23:59:59 CLS Outpatient SUZAN KNOWLES APRN [facility] RT ABN WEIGHT LOSS,HYPOXEMIA,PNEUMONIA,COUGH,DYSPNEA [id number] 07/16/2019 05:35:00 020 10:42:00 DIS Outpatient ASHLEY BALDWIN DO [facility] PREOP EBUS [id number] 07/14/2019 08:15:00 020 08:15:00 CAN Preadmit SUZAN KNOWLES APRN [facility] RAD ABN WEIGHT LOSS,HYPOXEMIA,PNEUMONIA,COUGH,DYSPNEA [id number] 08/14/2019 08:28:[address] Inpatient ERICKSON JARVIS MD [facility] 4TH COPD EXACERBATION [id number] 09/26/2018 08:20:00 09/26/2018 23:59:5 9 CLS Outpatient ANYI TONG [facility] [id number] 10/06/2018 22:38:00 Document Registration
--- OUTSIDE RECORDS SUMMARY | 2019-08-15 18:06 | XMS REPORT | Continuity of Care Document ---
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, UNSPECIFIED 02/20/2018 Zhang [...] 07/27/2019 ASHLEY BALDWIN DO Ot Z79.899 OTHER COMPUTING ARCHITECT (CURRENT) DRUG THERAPY 07/27/2019 ASHLEY BALDWIN DO Ot Z87.891 PERSONAL HISTORY OF NICOTINE DEPENDENCE 07/31/2019 HANDY KNOWLESINE Doc DAIRY BACTERIOLOGIST Ot J30.9 ALLERGIC RHINITIS, UNSPECIFIED 07/31/2019 ELENI, SUZAN E DAIRY BACTERIOLOGIST Ot J43.9 EMPHYSEMA, UNSPECIFIED 07/31/2019 ELENI, SUZAN E DAIRY BACTERIOLOGIST Ot R05 COUGH 07/31/2019 ELENI, SUZAN E DAIRY BACTERIOLOGIST Ot R06.00 DYSPNEA, UNSPECIFIED 07/31/2019 ELENI, SUZAN E DAIRY BACTERIOLOGIST Ot R06.89 OTHER ABNORMALITIES OF BREATHING 07/31/2019 ELENI SUZAN E DAIRY BACTERIOLOGIST Ot R09.02 HYPOXEMIA 07/31/2019 ELENI SUZAN E DAIRY BACTERIOLOGIST Ot R91.8 OTHER NONSPECIFIC ABNORMAL FINDING OF BRANDON 07/31/2019 HANDY KNOWLESINE Doc DAIRY BACTERIOLOGIST Ot Z72.0 TOBACCO USE 08/05/2019 ASHLEY BALDWIN [...] 08/05/2019 ASHLEY BALDWIN DO Ot Z79.899 OTHER SNF (CURRENT) DRUG THERAPY 08/05/2019 ASHLEY BALDWIN DO [...] 08/05/2019 ASHLEY BALDWIN DO Ot Z79.899 OTHER SNF (CURRENT) DRUG THERAPY 08/05/2019 ASHLEY BALDWIN DO Ot Z87.891 PERSONAL HISTORY OF NICOTINE DEPENDENCE 08/12/2019 SUZAN KNOWLES DAIRY BACTERIOLOGIST Ot J30.9 ALLERGIC RHINITIS, UNSPECIFIED 08/12/2019 SUZAN KNOWLES DAIRY BACTERIOLOGIST Ot J43.9 EMPHYSEMA, UNSPECIFIED 08/12/2019 HANDY KNOWLESINE Doc DAIRY BACTERIOLOGIST Ot R05 COUGH 08/12/2019 SUZAN KNOWLES DAIRY BACTERIOLOGIST Ot R06.00 DYSPNEA, UNSPECIFIED 08/12/2019 SZUAN KNOWLES DAIRY BACTERIOLOGIST Ot R06.89 OTHER ABNORMALITIES OF BREATHING 08/12/2019 SUZAN KNOWLES DAIRY BACTERIOLOGIST Ot R09.02 HYPOXEMIA 08/12/2019 HANDY KNOWLESINE Doc DAIRY BACTERIOLOGIST Ot R91.8 OTHER NONSPECIFIC ABNORMAL FINDING OF BRANDON 08/12/2019 SUZAN KNOWLES DAIRY BACTERIOLOGIST Ot Z72.0 TOBACCO USE Procedures There is [...] 32.7 g/dL 32.0-36.0 MCV 97.6 fL 80.0-97.0 Dickson% 5.5 % 0.0-12.0 MPV 10.9 fL 7.4-10.0 Christie% 83.0 % 37.0-80.0 Plt 168 K/uL 150-400 RBC 4.64 M/uL 4.20-5.40 RDW 12.7 % 11.6-14.8 WBC 9.86 K/uL 5.00-10.00 Christie 8.19 K/uL 2.00-6.90 Dickson 0.5 K/uL 0.0-0.9 Baso 0.0 K/uL 0.0-0.2 [...] MEDIA PLATED Setup at 23:35 on 10/06/2018X0 [id number] [employer] Position C42 CULTURE SOURCE iv [...] MEDIA PLATED Setup at 23:35 on 10/06/2018X0 [id number] [employer] Position C49 CULTURE SOURCE arterial [...] CULTURE RESULTS Scant Gram Negative L actose Flat Drier BETZAIDA / ID to Follow Further Testing Pending FINAL CULTURE RESULTS Scant Gram Negative La ctose Flat Drier BETZAIDA/ID to [id number] Gram Positive Mixed Normal Lena MEDIA PLATED [...] - 06/15/19 14:17 Surg Path Sent to [facility] Pathology Arterial Blood Gas - 06/25/19 13:58 [...] FOR INFLUENZA A AND B ANTIGENS BY [facility] Comprehensive metabolic panel - 08/13/19 17:41 Serum [...] NRG Blood erythrocyte morphology finding identification [facility]AL [facility] Comprehensive metabolic panel - 08/14/19 03:00 Serum [...] Status Pt. Type Provider Facility Loc./Unit Complaint [id number] 07/02/2019 13:35:00 07/02/2019 23:59 :00 DIS Outpatient Zhang Duncan [id number] 06/25/2019 13:46:00 06/29/2019 16:15 :00 DIS Inpatient Holly Bernal enter ICU [id number] 06/25/2019 11:43:00 06/25/2019 23:59 :00 DIS Outpatient Zhang Duncan [id number] 06/15/2019 00:00:00 06/15/2019 14:32 :00 DIS Outpatient Smith Owusu [id number] 06/12/2019 07:31:00 06/12/2019 23:59 :00 DIS Outpatient Smith Owusu [id number] 12/26/2018 09:25:00 12/26/2018 23:59: 00 DIS Outpatient Zhang Duncan [id number] 12/25/2018 08:36:00 12/25/2018 23:59: 00 DIS Outpatient Zhang Duncan [id number] 10/06/2018 22:38:00 10/10/2018 11:25: 00 DIS Outpatient Zhang Duncan [facility] MED-SURG [id number] 03/10/2018 13:03:00 06/18/2018 14:25: 00 DIS Outpatient Francesco Castillo [id number] 03/07/2018 09:43:00 03/07/2018 23:59: 00 DIS Outpatient Francesco Castillo [id number] 02/27/2018 12:26:00 02/27/2018 23:59: 00 DIS Outpatient Zhang Duncan [id number] 02/20/2018 10:20:00 02/20/2018 23:59: 00 DIS Outpatient Zhang Duncan [id number] 05/31/2016 08:48:00 06/05/2016 11:38: 00 DIS Inpatient Zhang Duncan [facility] ter ER [id number] 12/24/2018 09:12:00 Document Registration [id number] 05/29/2018 10:51:00 Document Registration [id number] 02/20/2018 09:17:00 Document Registration [id number] 05/31/2016 09:08:20 Document Registration [id number] 07/22/2019 06:59:00 23:59:59 CLS Outpatient ASHLEY BALDWIN DO [facility] ENDO DYSPNEA/LUNG MASS/COUGH [id number] 07/17/2019 06:55:00 23:59:59 CLS Outpatient SUZAN KNOWLES APRN [facility] RT ABN WEIGHT LOSS,HYPOXEMIA,PNEUMONIA,COUGH,DYSPNEA [id number] 07/16/2019 05:35:00 020 10:42:00 DIS Outpatient ASHLEY BALDWIN DO [facility] PREOP EBUS [id number] 07/14/2019 08:15:00 020 08:15:00 CAN Preadmit SUZAN KNOWLES APRN [facility] RAD ABN WEIGHT LOSS,HYPOXEMIA,PNEUMONIA,COUGH,DYSPNEA [id number] 08/14/2019 08:28:[address] Inpatient ERICKSON JARVIS MD [facility] 4TH COPD EXACERBATION [id number] 09/26/2018 08:20:00 09/26/2018 23:59:5 9 CLS Outpatient ANYI TONG [facility] [id number] 10/06/2018 22:38:00 Document Registration
[2019-08-15] MEDS ORDERED: NON-FORMULARY MEDICATION 1 EA EA (Budesonide/Formoterol Fumarate (Symbicort 160-4.5 Mcg In IH SCH (21:00)
[2019-08-16 00:24] VITALS: BP 125/79
[2019-08-16] MEDS: RT-ALBUTEROL SULF 2.5 MG/3 ML PRE-MIX VIAL INH SCH ×6 (02:02→22:23)
[2019-08-16] MEDS: PANTOPRAZOLE 40 MG (PROTONIX) TAB PO SCH (05:40)
[2019-08-16] MEDS: lisINopril 5 MG (PRINIVIL) TABLET PO SCH (05:40)
[2019-08-16] MEDS: RT-ADVAIR HFA 115/21 MCG PER PUFF IH SCH ×2 (07:17→07:20)
[2019-08-16] MEDS: TIOTROPIUM BROMIDE IH SCH ×2 (07:22→18:52)
--- NOTE | 2019-08-16 07:32 | Pulmonary Progress Note ---
Subjective Date Seen by a Provider: Aug 15, 2019 (Late note ) Time Seen by a Provider: 07:30 Subjective/Events-last exam Pt feels much better today. He had a lot of questions which I answered. Sepsis Event Evaluation Height, Weight, BMI Height: '" Weight: lbs. oz. kg; 16.72 BMI Method: Focused Exam Lactate Level 08/13/19 17:41: Lactic Acid Level 1.36 Exam Exam Vital Signs Date Time Temp Pulse Resp B/P (MAP) Pulse Ox O2 Delivery O2 Flow Rate FiO2 08/16/19 02:00 98 Nasal Cannula 2.00 08/16/19 00:24 37.0 83 16 125/79 (94) 99 Nasal Cannula 1.00 08/15/19 21:55 94 Nasal Cannula 1.00 08/15/19 20:15 Nasal Cannula 2.00 08/15/19 18:34 93 Nasal Cannula 1.00 08/15/19 16:00 36.7 82 20 130/73 (92) 95 Nasal Cannula 08/15/19 12:00 37.1 75 18 127/68 (87) 93 Nasal Cannula 1.00 08/15/19 08:00 37.1 85 18 122/78 (93) 93 Nasal Cannula 1.00 08/15/19 08:00 Nasal Cannula 2.00 I & O 08/16/19 07:00 Intake Total 2009 ml Balance 2009 ml Height & Weight Height: '" Weight: lbs. oz. kg; 16.72 BMI Method: General Appearance: No Apparent Distress, Anxious, Chronically ill, Thin HEENT: Moist Mucous Membranes; No Scleral Icterus (L), No Scleral Icterus (R) Neck: Normal Inspection, Supple Respiratory: No Accessory Muscle Use, No Respiratory Distress, Decreased Breath Sounds; No Wheezing Cardiovascular: Regular Rate, Rhythm, No Murmur Capillary Refill: Less Than 3 Seconds Gastrointestinal: normal bowel sounds, non tender, soft Extremity: No Calf Tenderness, No Pedal Edema Neurologic/Psychiatric: Alert, Oriented x3 Results Lab Laboratory Tests 08/15/19 05:00 Assessment/Plan Assessment/Plan COPDAE -Solumedrol - change to prednisone taper -Oxygen -Check ABG -Change Vapotherm to NC -PT states "you were right I am not allergic to Ipratropium bromide/spiriva I was mistaken." -advair and spiriva. Very severe COPD hx NICOLASA,ASHLEY M DO Aug 16, 2019 07:32
[2019-08-16 08:00] VITALS: BP 141/93
[2019-08-16] MEDS: predniSONE 10 MG TAB PO SCH (08:34)
[2019-08-16] MEDS ORDERED: NON-FORMULARY MEDICATION 1 EA EA (Budesonide/Formoterol Fumarate (Symbicort 160-4.5 Mcg In IH SCH (09:00)
[2019-08-16] MEDS: SYMBICORT 160/4.5 MCG INHALER 6 GM (NON-FORMULARY) IH SCH ×2 (11:13→18:52)
--- NOTE | 2019-08-16 11:28 | Progress Note - Hospitalist ---
Subjective HPI/CC On Admission Date Seen by Provider: Aug 16, 2019 Time Seen by Provider: 11:23 Pt is a 74yoCM with a PMH of COPD and HTN who presented to the ER due to shortness of breath. He states that he suffered a "respiratory arrest" after going to the bathroom. He states he wears continuous oxygen at home and took it off to go to the bathroom but by the time he got back he was in "respiratory arrest." He asked his to call 911 at that time and placed his oxygen back on at 5lpm. He states his symptoms were much improved by the time EMS got there. He states he was seen by his PCP a few days ago an started on steroids and antibiotics without any improvement. He has been having increased shortness of breath over the past few days and thinks his Spiriva is causing bronchospasm. I offered to discontinue this order but he declined because he wants to follow Dr Choi's orders. Subjective/Events-last exam Pt reports feeling better but still very dyspneic with ambulation. Again he is adjusting his oxygen levels based on his own personal pulse ox that he has in his pocket. I again informed him that it is inappropriate and dangerous to turn up or down his oxygen on his own without information nursing or RT. He agrees but states he will continue to do so in order to "preoxygenate." Focused Exam Lactate Level 08/13/19 17:41: Lactic Acid Level 1.36 Objective Exam Vital Signs Vital Signs Date Time Temp Pulse Resp B/P (MAP) Pulse Ox O2 Delivery O2 Flow Rate FiO2 08/16/19 08:00 Nasal Cannula 2.00 08/16/19 08:00 37.1 72 20 141/93 (109) 94 08/14/19 04:00 25 Capillary Refill : Less Than 3 Seconds General Appearance: No Apparent Distress, Chronically ill, Thin Respiratory: Lungs Clear, No Respiratory Distress Cardiovascular: Regular Rate, Rhythm, No Murmur Neurologic/Psychiatric: Alert, Oriented x3 Results/Procedures Lab Patient resulted labs reviewed. Imaging: Reviewed Imaging Report Assessment/Plan Assessment and Plan Assess & Plan/Chief Complaint Acute on Chronic Respiratory Failure Acute COPD Exacerbation Continue with supplemental oxygen with goals for sats >90 Patient still has been adjusting his own oxygen levels and I again r ecommended strongly against this Continue oral steroids MAT Protocol Pulm consulted, appreciate recs Will likely be able to DC tomorrow HTN Continue Lisinopril Gastritis Continue home PPI Clinical Quality Measures DVT/VTE Risk/Contraindication: Risk Factor Score Per Nursin RFS Level Per Nursing on Admit: 4+=Very High ERICKSON JARVIS MD Aug 16, 2019 11:28
[2019-08-16] MEDS ORDERED: RT-ALBUTEROL/IPRATROPIUM 3 ML (DUONEB) VIAL INH PRN (11:30)
[2019-08-16 16:00] VITALS: BP 136/86
[2019-08-16 21:23] LABS: ABG BASE EXCESS 6.7 MMOL/L (-2.5-2.5); ABG OXYGEN SATURATION 95 % (94-100); ABG PCO2 53 MMHG (35-45); ABG PO2 82 MMHG (79-93)
[2019-08-16 21:25] LABS: ALLENS TEST POSITIVE; INSPIRED O2 1.5; PATIENT TEMP 37.3; VENTILATOR NO
--- NOTE | 2019-08-16 21:48 | NUR ---
AT APPROX 2029 PT REPORTED TO THIS RN HE FELT LIKE HE WAS IN RESP DISTRESS. HE WAS SITTING ON SIDE OF BED IN TRIPOD POSITION AND USING PURSED LIP BREATHING. HE HAD PERSONAL PULSE 02 ON FINGER AND 02 READ AT 86% WHILE HE WAS ON 1.5 L 02. THIS RN CALLED ABRAHAN LALA AND HE CAME TO ROOM. AT THIS TIME PT O2 WAS AT 94% AND PULSE AT 107. RT SUGGESTED ABG AND THEN GO FROM THERE TO BIPAP THAT PT WANTED ON. THIS RN ATTEMPTED TO TEXT AND CALL DR BALDWIN WITH NO ANSWER, SO DR JARVIS WAS NOTIFIED AND SHE ORDERED ABG. RT COLLECTED ABG. DR JARVIS NOTIFIED OF RESULTS AND HAD NO NEW ORDERS. RT GAUTHIER TALKED TO PT ABOUT RESULTS AND PT WAS SATISFIED WITH THEM AT THIS TIME.
[2019-08-17 00:20] VITALS: BP 128/72
--- NOTE | 2019-08-17 00:47 | NUR ---
RT, ABRAHAN, REPORTED TO THIS RN THAT PT WANTS TO CHANGE HIS CODE STATUS TO DNR FROM FULL CODE. DR JARVIS HAD PUT IN S/S CONSULT EARLIER TONIGHT AND MADE AWARE OF THIS CHANGE THAT PT HAD DECIDED ON.
[2019-08-17] MEDS: RT-ALBUTEROL SULF 2.5 MG/3 ML PRE-MIX VIAL INH SCH ×4 (02:36→15:46)
[2019-08-17 08:00] VITALS: BP 135/77
[2019-08-17] MEDS: TIOTROPIUM BROMIDE IH SCH (08:06)
[2019-08-17] MEDS: SYMBICORT 160/4.5 MCG INHALER 6 GM (NON-FORMULARY) IH SCH (08:07)
[2019-08-17] MEDS: lisINopril 5 MG (PRINIVIL) TABLET PO SCH (08:56)
[2019-08-17] MEDS: predniSONE 10 MG TAB PO SCH (08:56)
[2019-08-17] MEDS: PANTOPRAZOLE 40 MG (PROTONIX) TAB PO SCH (08:56)
[2019-08-17 11:36] VITALS: BP 135/77
[2019-08-17] MEDS ORDERED: PRED10TA22 PO (12:06)
--- NOTE | 2019-08-17 12:43 | NUR ---
Pt's brought him Communion.
--- NOTE | 2019-08-17 15:40 | NUR ---
Report to Keyonna BERNAL
[2019-08-17 16:00] VITALS: BP 139/81
--- NOTE | 2019-08-17 16:11 | Discharge Summary ---
Discharge Summary Hospital Course Was the Problem List Reviewed?: Yes Problems/Dx: (1) Acute respiratory failure with hypoxia and hypercapnia Status: Acute (2) COPD with acute exacerbation Status: Acute (3) End stage COPD Status: Chronic Hospital Course Date of Admission: Aug 14, 2019 at 08:28 Admission Diagnosis : Acute on chronic respiratory failure with hypoxia and hypercapnia Family Physician/Provider: Zhang Duncan DO Date of Discharge: 08/17/19 Discharge Diagnosis: Acute on chronic respiratory failure with hypoxia and hypercapnia Hospital Course: Murphy Marcum is a 74 year old male who presented with shortness of breath and was admitted with acute respiratory failure with hypoxia and hypercapnia due to acute exacerbation of end stage COPD. He was treated with steroids and breathing treatments and improved. He was evaluated by pulmonology. He was discharged home with a meeting to establish with [facility]. Labs and Pending Lab Test: Laboratory Tests 08/16/19 20:36: Blood Gas Puncture Site LEFT RADIAL, Blood Gas Patient Temperature 37.3, Arterial Blood pH 7.40, Arterial Blood Partial Pressure CO2 53H, Arterial Blood Partial Pressure O2 82, Arterial Blood HCO3 32H, Arterial Blood Total CO2 33.0H, Arterial Blood Oxygen Saturation 95, Arterial Blood Base Excess 6.7H, Tan Test POSITIVE, Blood Gas Ventilator Setting NO, Blood Gas Inspired Oxygen 1.5 Microbiology 08/13/19 Blood Culture - Preliminary, Resulted No growth 08/13/19 Influenza Types A,B Antigen (BETZAIDA) - Final, Complete Home Meds Active Prednisone 10 Mg Tab.ds.pk 10 Mg PO DAILY Take 6 tabs(60mg)daily,decrease by 1 tab(10mg)every other day. Reported Nebusal (Sodium Chloride For Inhalation) 4 Ml Vial.neb 1 Vial NEB TID Probiotic (Lactobacillus Acidophilus) 1 Each Capsule 1 Each PO DAILY Multivitamins (Multivitamin) 1 Each Tablet 1 Each PO DAILY Iprat-Albut 0.5-3(2.5) mg/3 ml (Ipratropium/Albuterol Sulfate) 3 Ml Ampul.neb 1 Vial NEB Q6H PRN Flonase Allergy Relief (Fluticasone Propionate) 9.9 Ml [place].susp 2 [place] NS DAILY Prednisone 20 Mg Tab 40 Mg PO BID FILLED 06-29-2019 #21 Pantoprazole Sodium 40 Mg Tablet.dr 40 Mg PO DAILY Lisinopril 5 Mg Tablet 5 Mg PO DAILY Symbicort 160-4.5 Mcg Inhaler (Budesonide/Formoterol Fumarate) 10.2 Gm Hfa.aer.ad 2 Puff IH BID Spiriva (Tiotropium [place]) 1 Inh Aerp 1 Inh IH DAILY Assessment/Pt Instructions Take medications as prescribed. Establish with [facility]. Discharge Planning: >30 minutes discharge planning Discharge Instructions Discharge Diet: No Restrictions Activity as Tolerated: Yes Discharge Physical Examination Vital Signs Vital Signs Date Time Temp Pulse Resp B/P (MAP) Pulse Ox O2 Delivery O2 Flow Rate FiO2 08/17/19 15:47 94 Nasal Cannula 1.00 08/17/19 11:36 37.0 87 24 08/17/19 08:00 20 135/77 (96) General Appearance: No Apparent Distress, Anxious, Thin Respiratory: No Respiratory Distress, Decreased Breath Sounds, Wheezing Cardiovascular: Regular Rate, Rhythm, No Edema, No Murmur Gastrointestinal: Normal Bowel Sounds, Non Tender, Soft Extremity: Normal Inspection, Non Tender, No Pedal Edema Skin: Normal Color, Warm/Dry Neurologic/Psychiatric: Alert Allergies: Coded Allergies: No Known Drug Allergies (Unverified , 08/14/19) Copy Copies To 1: ZHANG DUNCAN DO Discharge Summary Date of Admission Aug 14, 2019 at 08:28 Date of Discharge Discharge Date: Aug 17, 2019 Discharge Time: 17:00 Admission Diagnosis Acute COPD Exacerbation Consults/Procedures Consulations Pulmonology Comfort Measures/ End of Life Care: Hospice Care (Home) Advance Care discuss with: patient Plan: initiate discussion Discharge Diagnosis (1) Acute respiratory failure with hypoxia and hypercapnia Status: Acute (2) COPD with acute exacerbation Status: Acute (3) End stage COPD Status: Chronic Clinical Quality Measures DVT/VTE Risk/Contraindication: Risk Factor Score Per Nursin RFS Level Per Nursing on Admit: 4+=Very High SALAZAR JONES MD Aug 17, 2019 16:11
--- NOTE | 2019-08-17 16:23 | Pulmonary Progress Note ---
Subjective Time Seen by a Provider: 16:19 Subjective/Events-last exam Pt still complains of SOB helena with exertion Sepsis Event Evaluation Height, Weight, BMI Height: '" Weight: lbs. oz. kg; 16.72 BMI Method: Exam Exam Vital Signs Date Time Temp Pulse Resp B/P (MAP) Pulse Ox O2 Delivery O2 Flow Rate FiO2 08/17/19 15:47 94 Nasal Cannula 1.00 08/17/19 11:36 37.0 87 93 24 08/17/19 11:22 94 Nasal Cannula 1.00 08/17/19 08:20 Nasal Cannula 1.50 08/17/19 08:08 93 Nasal Cannula 1.00 08/17/19 08:00 37.0 80 20 135/77 (96) 95 Nasal Cannula 1.00 08/17/19 02:36 97 Nasal Cannula 1.50 08/17/19 00:20 37.2 89 18 128/72 (90) 98 Nasal Cannula 1.00 08/16/19 22:23 95 Nasal Cannula 1.50 08/16/19 20:00 Nasal Cannula 1.50 08/16/19 18:48 94 Nasal Cannula 1.00 I & O 08/17/19 07:00 Intake Total 2560 ml Balance 2560 ml Height & Weight Height: '" Weight: lbs. oz. kg; 16.72 BMI Method: General Appearance: No Apparent Distress, Chronically ill, Thin HEENT: Moist Mucous Membranes; No Scleral Icterus (L), No Scleral Icterus (R) Neck: Normal Inspection, Supple Respiratory: Lungs Clear, No Respiratory Distress Cardiovascular: Regular Rate, Rhythm, No Murmur Capillary Refill: Less Than 3 Seconds Gastrointestinal: normal bowel sounds, non tender, soft Extremity: No Calf Tenderness, No Pedal Edema Neurologic/Psychiatric: Alert, Oriented x3 Assessment/Plan Assessment/Plan COPDAE -Continue prednisone taper -Oxygen -Check ABG -PT states "you were right I am not allergic to Ipratropium bromide/spiriva I was mistaken." -advair and spiriva. Very severe COPD hx Pt is ok for discharge. I talked with patient regarding overall pulmonary status. I discussed the option of hospice care. Pt would like more information regarding hospice. Pt would also benefit from BiPAP which I believe he will be a ble to get with hospice care. He would like more information from [facility]. I asked [facility] to meet with him and his to answer all questions. ASHLEY BALDWIN DO Aug 17, 2019 16:23
--- NOTE | 2019-08-17 16:25 | NUR ---
CM/SS: Visited with pt as to plan for discharge Plan: Pt will return home with hospice Summary: Pt wants to get a vent to mask trilogy machine and is frustrated that he needs to talk with Dr. Choi. Pt wants this worker to order it. Process explained of needing to see the physician and then a script is obtained for the equipment. Pt is unable to tell this worker who he uses for medical equipment oxygen. Pt only reports some place in [place], [place] [facility] - They do not have pt is their system Call to [facility] - They do not have pt in their system Call to [facility] - They do take care of pt however do not have the vent to mask trilogy in stock and have to order and will take 3-[address] Choi is here to round on pt. He reports a change of plan and that pt is interested in Hospice. Pt would like an informational visit this evening from [place] when he is dismissed from the hospital. [place] called by the physician. Information faxed to [facility] fax number [phone].
[2019-08-17 16:40] VITALS: BP 139/81
== END 2019-08-17 16:41 | disposition hospice, home (50) | DRG 189 ==
LOC: EDUNIT# 17:32 → ER 17:33 → ICU 18:00 → OBSVTOIN 08-14 08:28 → 4TH 08-14 08:57
PROVIDERS: ADMIT Family Medicine; ATTEND Family Medicine
DX: J96.21 Acute and chronic respiratory failure with hypoxia (principal); J96.22 Acute and chronic respiratory failure with hypercapnia; J44.1 Chronic obstructive pulmonary disease with (acute) exacerbation; I10 Essential (primary) hypertension; J30.2 Other seasonal allergic rhinitis; K29.70 Gastritis, unspecified, without bleeding; K44.9 Diaphragmatic hernia without obstruction or gangrene; Z99.81 Dependence on supplemental oxygen; Z87.891 Personal history of nicotine dependence; Z87.01 Personal history of pneumonia (recurrent); Z91.14 Patient's other noncompliance with medication regimen; Z90.2 Acquired absence of lung [part of]
CPT/HCPCS: 36415; 36600; 71045; 80048; 80053; 82805; 83605; 83735; 83880; 84145; 85007; 85025; 85027; 86141; 87040; 87804; 93005; 93041; 94640; 94760